=== PATIENT | female | born 1970 | race Caucasian/White ===

== ENCOUNTER 2019-01-27 00:12 | Emergency (ER) | payer OTHER, MEDICAID, SELFPAY ==
[2019-01-27 00:13] VITALS: BP 123/74; PULSE 92; RESP 18; TEMP 36.1; BMI 24.0
--- NOTE | 2019-01-27 00:43 | RAD_ITS ---
STUDY: X-RAY - LEFT KNEE REASON FOR EXAM: Female, 48 years old. Pain status post fall TECHNIQUE: 4 view(s) of the knee. COMPARISON: Right-sided knee same day FINDINGS: Normal visualized distal femur. Normal visualized proximal tibia and fibula. Normal proximal tibiofibular articulation. Normal medial femorotibial compartment. Normal lateral femorotibial compartment. Normal patellofemoral articulation. There is a widened appearance of the patellofemoral compartment on the medial side. There is visualized mild soft tissue edema. The soft tissue structures are unremarkable. RAD/Knee 4 or More Views IMPRESSION: On the sunrise view there is a mildly widened appearance of the medial aspect of the patellofemoral compartment could represent ligamentous injury of the patella retinaculum. There is no visualized joint effusion. Recommend consideration for follow-up MRI if appropriate. Electronically Signed: Edita Benson MD at 1:57 EDT Tel , Service support ,
--- NOTE | 2019-01-27 00:43 | RAD_ITS ---
STUDY: X-RAY - LEFT FOOT CLINICAL: Female, 48 years old. Pain from fall TECHNIQUE: Pain view(s) of the foot. COMPARISON: None. FINDINGS: There is a plantar spur. Normal visualized subtalar, talonavicular, calcaneocuboid, tarsal and tarsometatarsal articulations. There is an age indeterminate angulated appearance of the distal fourth and third metatarsals. There is a irregular cortical appearance of the fourth metacarpal consistent with age indeterminant fracture. The bones overall are osteopenic. Normal metatarsophalangeal joint of the great toe. Normal tibial and fibular sesamoid bones. Normal interphalangeal joint of the great toe. Normal phalanges of the great toe. Normal second through fifth metatarsophalangeal joints. Normal interphalangeal joints and phalanges of the lesser toes. The soft tissue structures are unremarkable. RAD/Foot min 3 Views IMPRESSION: Age-indeterminate fractures of the third and fourth metatarsals. Recommend palpation for point tenderness. Plantar spur. The bones are osteopenic Electronically Signed: Edita Benson MD at 2:17 EDT Tel , Service support ,
--- NOTE | 2019-01-27 00:43 | RAD_ITS ---
STUDY: X-RAY - RIGHT KNEE REASON FOR EXAM: Female, 48 years old. Pain, fall TECHNIQUE: view(s) of the knee. COMPARISON: None. FINDINGS: There is demineralization of the visualized distal femur. There is demineralization of the tibia and fibula. There is arthrosis of the proximal tibiofibular articulation. There is mild degenerative arthrosis of the medial femorotibial compartment. Normal lateral femorotibial compartment. There is mild degenerative arthrosis of the patellofemoral articulation. The soft tissue structures are unremarkable. RAD/Knee 4 or More Views IMPRESSION: Mild degenerative change. No visualized acute fracture. Electronically Signed: Edita Benson MD at 2:23 EDT Tel , Service support ,
--- NOTE | 2019-01-27 00:43 | RAD_ITS ---
STUDY: X-RAY - RIGHT ANKLE REASON FOR EXAM: Female, 48 years old. Pain fall TECHNIQUE: view(s) of the ankle. COMPARISON: 3 FINDINGS: Normal visualized distal tibia and fibula. Normal medial and lateral malleoli. Normal tibiotalar articulation and ankle mortise. There is a plantar spur. The visualized subtalar, talonavicular, calcaneocuboid and tarsal articulations are normal. The soft tissue structures are unremarkable. RAD/Ankle min 3 Views IMPRESSION: No visualized acute fracture. Electronically Signed: Edita Benson MD at 2:17 EDT Tel , Service support ,
--- NOTE | 2019-01-27 01:03 | ED.RN ---
PT REPORTS THAT SHE DOES NOT WANT TO FILE WORKERS COMP.
--- NOTE | 2019-01-27 02:28 | ED.VISSUMM ---
- ER Visit Summary Date of Service: 01/27/19 Chief Complaint: Fall History of Present Illness: The patient is a 48 F who presents after a fall. While walking she inverted her right ankle and fell forward onto both of her knees. She also fell with her left foot in a plantarflexed position. She has a recent left foot fracture from in September and had to have surgical intervention. She had the pins removed 1 month ago. She has had ongoing pain since that time. She notes that she was being treated with Percocet but recently ran out. She complains of some mild pain in bilateral knees. No other injuries. No head injury. Physical Examination: Afebrile vitals normal Heart regular rate and rhythm Lungs are clear Abdomen soft Active full range of motion x4 extremities she has mild tenderness of the bilateral knees no deformity no effusion Patient has no focal right ankle tenderness no focal bony tenderness no deformity Patient does have tenderness over the left midfoot no deformity she has easily palpable symmetric dorsalis pedis pulses with brisk capillary refill and normal sensation to light touch Test Results: Left knee x-ray shows a possible patellar retinaculum injury. There is no fracture. There is no effusion. Right knee x-ray shows mild degenerative changes. Left foot shows age-indeterminate fractures of the third and fourth metatarsals. Right ankle x-ray shows no acute fracture. Emergency Department Course and Treatment: Imaging as above. Patient has known recent left foot fractures. On review of imaging I do not appreciate any acute fracture. She was advised of the possible patellar retinaculum injury on the left. She was given an Ric wrap. She was advised to follow-up with orthopedics. She was given a home pack of oxycodone for pain and advised on supportive care and was discharged home. Treatment Plan: [] Disposition: Discharge Impression: Right ankle sprain Recent left foot fractures Bilateral knee contusions This note was generated with [employer] dictation software. It may contain incorrect words, spelling, and punctuation that were not noted in review of the chart prior to signing ED Disposition - Plan for ED Patient: Referrals: Sidney Herring DO [Primary Care Provider] -
--- NOTE | 2019-01-27 02:31 | ED.DEP ---
ED Disposition - Plan for ED Patient: Instructions: ED Contusion Lower Ext, ED Sprain Ankle W X Ray Referrals: Sidney Herring DO [Primary Care Provider] -
[2019-01-27] MEDS: oxyCODONE 5 MG Tablet PO (02:37)
== END 2019-01-27 02:50 | disposition home or self-care (01) ==
LOC: ED 00:52
PROVIDERS: Emergency Provider Emergency Medicine; Family Provider Family Medicine; PCP Family Medicine
DX: S93.401A Sprain of unspecified ligament of right ankle, initial encounter (principal); S80.01XA Contusion of right knee, initial encounter; S80.02XA Contusion of left knee, initial encounter; X50.1XXA Overexertion from prolonged static or awkward postures, initial encounter; Y93.01 Activity, walking, marching and hiking; Y92.9 Unspecified place or not applicable; S92.332A Displaced fracture of third metatarsal bone, left foot, initial encounter for closed fracture; S92.342A Displaced fracture of fourth metatarsal bone, left foot, initial encounter for closed fracture; W19.XXXA Unspecified fall, initial encounter; Z72.0 Tobacco use
CPT/HCPCS: 73564; 73610; 73630; 99282

== ENCOUNTER 2022-02-09 16:54 | Emergency (ER) | payer MEDICAID, SELFPAY ==
[2022-02-09 16:54] VITALS: PULSE 100
[2022-02-09 16:56] VITALS: BP 128/60; PULSE 103; RESP 18; TEMP 37.1; O2SAT 99; BMI 23.0
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
== END 2022-02-09 17:35 | disposition home or self-care (01) ==
PROVIDERS: PCP Family Medicine; Visit Provider Physician Assistant
DX: F41.9 Anxiety disorder, unspecified (principal); F17.210 Nicotine dependence, cigarettes, uncomplicated; Z79.899 Other long term (current) drug therapy
CPT/HCPCS: 99282

== ENCOUNTER 2022-04-22 19:51 | Emergency (ER) | payer MEDICAID, SELFPAY ==
[2022-04-22 19:53] VITALS: BP 124/67; PULSE 103; RESP 18; TEMP 36.2; O2SAT 99; BMI 21.1
--- NOTE | 2022-04-22 20:53 | ED.VIS.BACK ---
HPI History of Present Illness Chief Complaint: Back Informant: patient Narrative Narrative: Patient states she aggravated her back today. She was doing a lot of getting up and down. She has increased pain in the left lower back. She states this is a side that always acts up. She twisted getting into her car and that made it worse. It does not radiate down the legs although it hurts more when she moves her left leg. She has no numbness tingling. She is not weak but she states any motion bothers her back. No bowel or bladder dysfunction. No incontinence at all. No fevers chills sweats. She has been feeling normal until she did just more activity today. No fall or impact. She states she does not see any back specialist. But she is on long-term benzos, gabapentin and oxycodone. Her last prescription for 90 oxycodone was filled on the second of this month. She has allergy to NSAIDs. This is because she had gastric bypass and she is not supposed to take them. There is no actual reaction. PFSH PFSH Home Medications promethazine 25 mg tablet 25 mg PO Q8H PRN PRN Nausea 01/27/19 [History Last Taken Unknown] bupropion HCl 150 mg 24 hr tablet, extended release 150 mg PO DAILY 02/09/22 [History Last Taken Unknown] hydroxyzine HCl 50 mg tablet 50 mg PO TID PRN anxiety #15 tabs 02/09/22 [Rx Last Taken Unknown] gabapentin 600 mg tablet 1 tab PO QHS 04/22/22 [History Last Taken Unknown] lorazepam 1 mg tablet 0.5 mg PO DAILY 04/22/22 [History Last Taken Unknown] oxycodone-acetaminophen 7.5 mg-325 mg tablet 1 tab PO TID 04/22/22 [History Last Taken Unknown] tizanidine 4 mg tablet 1 tab PO TID 04/22/22 [History Last Taken Unknown] Allergy/AdvReac Type Severity Reaction Status Date / Time bupivacaine [From Marcaine] Allergy Angioedema Verified 04/22/22 19:52 cortisone Allergy Angioedema Verified 04/22/22 19:52 lidocaine Allergy Angioedema Verified 04/22/22 19:52 NSAIDS (Non-Steroidal AdvReac Upset Verified 04/22/22 19:52 Anti-Inflamma Stomach Social History Smoking Status: Current every day smoker tobacco type: cigarettes ROS ROS ED Constitutional Constitutional ED: Denies chills or fever(s) Eyes Eyes: Denies change in vision ENT ENT ED: Denies rhinorrhea or sore throat Cardiovascular Cardiovascular: Denies chest pain or palpitations Respiratory/Chest Respiratory/Chest: Denies dyspnea Gastrointestinal Gastrointestinal: Denies abdominal pain, constipation, diarrhea, nausea or vomiting Genitourinary Genitourinary ED: Denies dysuria, hematuria or urinary frequency Musculoskeletal Musculoskeletal: Reports back pain Integumentary Denies abscess, Abrasions or rash Neurologic Neurologic: Denies paresthesias or weakness Endocrine Endocrinology: Denies polydipsia or polyuria Hematologic/Lymphatic Hematologic/Lymphatic: Denies easy bleeding or easy bruising Allergic/Immunologic Allergic/Immunologic ED: Denies urticaria EXAM Physical Exam Const Vital Signs: 04/22/22 19:53 Temperature 97.2 F L Temperature Source Temporal Pulse Rate 103 H Respiratory Rate 18 Blood Pressure 124/67 H Blood Pressure Mean 86 Pulse Ox 99 Oxygen Delivery Method Room Air Positive well nourished and well developed General Appearance ED: well developed and NAD HEENT Reports moist mucous membranes Eyes EOMs intact bilaterally Resp normal respiratory effort Cardio regular rate and regular rhythm GI normal to inspection, nondistended, normoactive bowel sounds, soft to palpation, non-tender, non-distended and no masses GI Narrative: Bowel sounds are normal. No mass or distention. No pain with palpation Back/Spine normal to inspection Back/Spine Narrative: Back looks normal. She has minimal right paraspinal tenderness. She has mostly left paraspinal tenderness down low. No real buttock or sciatic notch tenderness. Reflexes and strength are intact. But any motion causes discomfort up in her back. Extremity normal to inspection Extremity Narrative: No edema or cords. Neuro Deep Tendon Reflexes: Rt Patellar (L4): 2+, Lt Patellar (L4): 2+, Rt Ankle (S1): 1+ and Lt Ankle (S1): 1+ Deep Tendon Reflexes Back: Rt Patellar (L4): 2+, Lt Patellar (L4): 2+, Rt Ankle (S1): 1+ and Lt Ankle (S1): 1+ Psych mental status grossly normal Skin no rashes or lesions noted and no wounds MDM MDM MDM Narrative Medical decision making narrative: Patient will get dose meds here. She has tizanidine oxycodone and lorazepam at home. She also has gabapentin. I cannot prescribe further meds. She will follow-up with her physician. If she develops weakness, bowel bladder dysfunction fevers or other problems she should return. Discharge Plan Triage Chief Complaint: Back ED Provider: Christian Handy Dx/Rx/DC Orders Clinical Impression: Acute exacerbation of chronic low back pain Instructions: ED Back Pain (Acute or Chronic) Prescriptions: No Action promethazine 25 MG tablet 25 mg PO Q8H PRN PRN (Reason: Nausea) hydroxyzine HCl 50 mg tablet 50 mg PO TID PRN (Reason: anxiety) Qty: 15 0RF bupropion HCl 150 mg tablet extended release 24 hr 150 mg PO DAILY Label Comments: take 1 tablet by mouth once daily gabapentin 600 mg tablet 1 tab PO QHS Label Comments: take 1 tablet by mouth at bedtime tizanidine 4 mg tablet 1 tab PO TID Label Comments: take 1 tablet by mouth every 8 hours lorazepam 1 mg tablet 0.5 mg PO DAILY Label Comments: take 1 tablet by mouth three times a day if needed for anxiety oxycodone-acetaminophen 7.5-325 mg tablet 1 tab PO TID Label Comments: take 1 tablet by mouth every 8 hours if needed for pain Primary Care Provider: Sidney Herring Referrals: Sidney Herring, [Primary Care Provider] - 3-5 Days if not improving Disposition Disposition: Home, Self Care
[2022-04-22] MEDS: Orphenadrine 60 MG/2 ML Ampul IM (21:04)
[2022-04-22] MEDS: Ketorolac 15 MG/ML Vial IM (21:04)
[2022-04-22] MEDS: oxyCODONE 5 MG Tablet PO (21:04)
== END 2022-04-22 21:28 | disposition home or self-care (01) ==
LOC: ED 21:13
PROVIDERS: Emergency Provider Emergency Medicine; PCP Family Medicine; Visit Provider Emergency Medicine
DX: M54.50 Low back pain, unspecified (principal); G89.29 Other chronic pain; F17.210 Nicotine dependence, cigarettes, uncomplicated; Z79.899 Other long term (current) drug therapy
CPT/HCPCS: 96372; 99283

== ENCOUNTER 2022-04-26 18:05 | Emergency (ER) | payer MEDICAID, SELFPAY ==
[2022-04-26 18:06] VITALS: BP 123/72; PULSE 99; RESP 18; TEMP 37.6; O2SAT 97; BMI 20.7
[2022-04-26 18:25] LABS: Bacteria 0 SEEN /hpf (None Seen); Mucous, Urine 0 SEEN /hpf (<or=2+); Red Blood Cells-Urine 0 SEEN /hpf (0-5)
[2022-04-26 18:28] LABS: Color, Urine Yellow (Yellow); Glucose, Dipstick Normal (Normal); Ketone-Dipstick Negative (Negative); Leukocyte Esterase-Dipstick 25 /ul (Negative); Nitrite-Dipstick Negative (Negative); Occult Blood-Urine Negative /ul (Negative); Protein-Dipstick Negative (Negative); Specific Gravity, Urine 1.005 (1.002-1.030); Urine Bilirubin Dipstick Negative (Negative); Urine Clarity Clear (Clear); Urine Urobilinogen Normal (Normal)
[2022-04-26 18:43] LABS: Squamous Epithelial Cells - UA 0-5 SEEN /hpf (5-10); White Blood Cells 0-5 SEEN /hpf (0-5)
[2022-04-26 20:26] VITALS: BP 140/74; PULSE 84; PULSE 86; RESP 18; TEMP 37.1; O2SAT 100
--- NOTE | 2022-04-26 20:35 | EDS_ITS ---
HPI History of Present Illness Chief Complaint: Flank Pain Informant: patient Onset/Context/Timing Onset: Days (4 days) Context: Gradual Onset Timing: Waxes and wanes Current Severity: Moderate Maximum Severity: Moderate Narrative Narrative: Patient presents secondary to left flank pain. She has a history of chronic back pain and was seen here last Friday for reproducible pain in her lower back. She was given pain meds here and then discharged to continue her chronic pain meds at home. She states that she has some dysuria and increased frequency in urination. She now has pain wrapping around her left flank and into her left groin. She denies history of kidney stones. No fever or chills. No change in bowel habits. [facility] Medical History Chronic back pain History of depression Home Medications promethazine 25 mg tablet 25 mg PO Q8H PRN PRN Nausea 01/27/19 [History Last Taken Unknown] bupropion HCl 150 mg 24 hr tablet, extended release 150 mg PO DAILY 02/09/22 [History Last Taken Unknown] hydroxyzine HCl 50 mg tablet 50 mg PO TID PRN anxiety #15 tabs 02/09/22 [Rx Last Taken Unknown] gabapentin 600 mg tablet 1 tab PO QHS 04/22/22 [History Last Taken Unknown] lorazepam 1 mg tablet 0.5 mg PO DAILY 04/22/22 [History Last Taken Unknown] oxycodone-acetaminophen 7.5 mg-325 mg tablet 1 tab PO TID 04/22/22 [History Last Taken Unknown] tizanidine 4 mg tablet 1 tab PO TID 04/22/22 [History Last Taken Unknown] Allergy/AdvReac Type Severity Reaction Status Date / Time bupivacaine [From Marcaine] Allergy Angioedema Verified 04/26/22 18:05 cortisone Allergy Angioedema Verified 04/26/22 18:05 lidocaine Allergy Angioedema Verified 04/26/22 18:05 NSAIDS (Non-Steroidal AdvReac Upset Verified 04/26/22 18:05 Anti-Inflamma Stomach Social History Smoking Status: Current every day smoker tobacco type: cigarettes ROS ROS ED Constitutional Constitutional ED: Denies chills or fever(s) Eyes Eyes: Denies change in vision or discharge from eye(s) ENT ENT ED: Denies discharge from eye(s), rhinorrhea or sore throat Cardiovascular Cardiovascular: Denies chest pain or palpitations Respiratory/Chest Respiratory/Chest: Denies cough or dyspnea Gastrointestinal Gastrointestinal: Reports abdominal pain; Denies diarrhea, nausea or vomiting Genitourinary Genitourinary ED: Reports dysuria and urinary frequency; Denies difficulty urinating Musculoskeletal Musculoskeletal: Reports back pain; Denies extremity pain Integumentary Denies Abrasions or rash Neurologic Neurologic: Denies headache(s) or weakness Allergic/Immunologic Allergic/Immunologic ED: Denies lip swelling or urticaria EXAM Physical Exam Const Vital Signs: 04/26/22 18:06 04/26/22 20:26 04/26/22 20:26 Temperature 99.7 F H 98.7 F Temperature Source Temporal Oral Pulse Rate 99 84 86 Respiratory Rate 18 18 18 Blood Pressure 123/72 H 140/74 H 140/74 H Blood Pressure Mean 89 96 96 Pulse Ox 97 100 100 Oxygen Delivery Method Room Air Room Air Room Air Positive well nourished and well developed General Appearance ED: well developed HEENT Reports normocephalic and head/scalp atraumatic Eyes PERRL and EOMs intact bilaterally Neck supple Chest Wall inspection of chest normal and palpation of chest normal Resp normal respiratory effort and clear to auscultation bilaterally Cardio regular rate and regular rhythm GI normal to inspection, nondistended, normoactive bowel sounds and non-tender Palpation: soft Back/Spine Back/Spine Narrative: Reproducible tenderness in the left low lumbar paraspinal muscles. Extremity normal to inspection Neuro oriented x3 and no sensory deficits noted Sensorium / Orientation: alert Motor Exam: strength 5/5 throughout Psych mental status grossly normal Skin no rashes or lesions noted MDM MDM MDM Narrative Medical decision making narrative: Patient was given Toradol, Norflex, oxycodone which helped her pain previously. Urinalysis was obtained by nursing protocol and unremarkable. Plan was to order CT flank but patient eloped from the emergency room prior to this being ordered and performed. Lab Data Labs: Laboratory Results - last 24 hr 04/26/22 18:20 Urine Color Yellow Urine Clarity Clear Urine pH 7.0 Ur Specific [place] 1.005 Urine Protein Negative Urine Glucose (UA) Normal Urine Ketones Negative Urine Occult Blood Negative Urine Nitrite Negative Urine Bilirubin Negative Urine Urobilinogen Normal Ur Leukocyte Esterase 25 H Urine RBC 0 SEEN Urine WBC 0-5 SEEN Ur Squamous Epith Cells 0-5 SEEN Urine Bacteria 0 SEEN Urine Mucus 0 SEEN Discharge Plan Triage Chief Complaint: Flank Pain ED Provider: Alexandria Harris Dx/Rx/DC Orders Clinical Impression: Left flank pain Prescriptions: No Action promethazine 25 MG tablet 25 mg PO Q8H PRN PRN (Reason: Nausea) hydroxyzine HCl 50 mg tablet 50 mg PO TID PRN (Reason: anxiety) Qty: 15 0RF bupropion HCl 150 mg tablet extended release 24 hr 150 mg PO DAILY Label Comments: take 1 tablet by mouth once daily gabapentin 600 mg tablet 1 tab PO QHS Label Comments: take 1 tablet by mouth at bedtime tizanidine 4 mg tablet 1 tab PO TID Label Comments: take 1 tablet by mouth every 8 hours lorazepam 1 mg tablet 0.5 mg PO DAILY Label Comments: take 1 tablet by mouth three times a day if needed for anxiety oxycodone-acetaminophen 7.5-325 mg tablet 1 tab PO TID Label Comments: take 1 tablet by mouth every 8 hours if needed for pain Primary Care Provider: Sidney Herring Referrals: Sidney Herring DO [Primary Care Provider] - Disposition Disposition: Elopement Discharge Date/Time: 04/26/22 23:35
[2022-04-26] MEDS: oxyCODONE 5 MG Tablet PO (20:50)
[2022-04-26] MEDS: Ketorolac 15 MG/ML Vial IM (20:51)
[2022-04-26] MEDS: Orphenadrine 60 MG/2 ML Ampul IM (20:51)
== END 2022-04-26 23:35 | disposition left against medical advice (07) ==
PROVIDERS: Emergency Provider Emergency Medicine; PCP Family Medicine; Visit Provider Emergency Medicine
DX: R10.9 Unspecified abdominal pain (principal); M54.9 Dorsalgia, unspecified; G89.29 Other chronic pain; F17.210 Nicotine dependence, cigarettes, uncomplicated; F32.A Depression, unspecified; Z79.899 Other long term (current) drug therapy
CPT/HCPCS: 81001; 96372; 99283; A4216

== ENCOUNTER 2022-04-29 12:03 | Emergency (ER) | payer MEDICAID, SELFPAY ==
[2022-04-29 12:04] VITALS: BP 134/59; PULSE 110; RESP 18; TEMP 37.3; O2SAT 99; BMI 23.3
--- NOTE | 2022-04-29 12:51 | EDS_ITS ---
HPI History of Present Illness Chief Complaint: Abscess Informant: patient Narrative Narrative: 52-year-old female presenting to the emergency department out of concern for perineal abscess. Patient states symptoms began yesterday unexpectedly with pain. She notes some swelling and continued pain today. She notes she is never had a thing like this before. [facility] Medical History Chronic back pain History of depression Home Medications promethazine 25 mg tablet 25 mg PO Q8H PRN PRN Nausea 01/27/19 [History Last Taken Unknown] bupropion HCl 150 mg 24 hr tablet, extended release 150 mg PO DAILY 02/09/22 [History Last Taken Unknown] hydroxyzine HCl 50 mg tablet 50 mg PO TID PRN anxiety #15 tabs 02/09/22 [Rx Last Taken Unknown] gabapentin 600 mg tablet 1 tab PO QHS 04/22/22 [History Last Taken Unknown] lorazepam 1 mg tablet 0.5 mg PO DAILY 04/22/22 [History Last Taken Unknown] oxycodone-acetaminophen 7.5 mg-325 mg tablet 1 tab PO TID 04/22/22 [History Last Taken Unknown] tizanidine 4 mg tablet 1 tab PO TID 04/22/22 [History Last Taken Unknown] cephalexin 500 mg capsule 500 mg PO Q6 #40 CAPSULES 04/29/22 [Rx Last Taken Unknown] sulfamethoxazole 800 mg-trimethoprim 160 mg tablet 1 tab PO BID #20 TABLETS 04/29/22 [Rx Last Taken Unknown] tramadol 50 mg tablet 50 mg PO Q4H PRN PRN Pain 3 days #20 tabs 04/29/22 [Rx Last Taken Unknown] Allergy/AdvReac Type Severity Reaction Status Date / Time bupivacaine [From Marcaine] Allergy Angioedema Verified 04/29/22 12:06 cortisone Allergy Angioedema Verified 04/29/22 12:06 lidocaine Allergy Angioedema Verified 04/29/22 12:06 NSAIDS (Non-Steroidal AdvReac Upset Verified 04/29/22 12:06 Anti-Inflamma Stomach Social History (Updated 04/29/22 @ 12:[address] Braden Razo DO) Smoking Status: Current every day smoker tobacco type: cigarettes substance use type: does not use ROS ROS ED Constitutional Constitutional ED: Denies chills or weight loss Eyes Eyes: Denies change in vision or diplopia ENT ENT ED: Denies ear pain, rhinorrhea or sore throat Cardiovascular Cardiovascular: Denies chest pain, orthopnea, palpitations or racing heartbeat Respiratory/Chest Respiratory/Chest: Denies cough, dyspnea or orthopnea Gastrointestinal Gastrointestinal: Denies abdominal pain, diarrhea, nausea or vomiting Genitourinary Genitourinary ED: Denies dysuria, hematuria or urinary frequency Musculoskeletal Musculoskeletal: Denies arthralgias or myalgias Integumentary Reports abscess; Denies rash Neurologic Neurologic: Denies headache(s) or weakness Psychiatric Psychiatric: Denies anxiety, depression, suicidal ideation or suicidal thoughts Endocrine Endocrinology: Denies polydipsia, polyphagia or polyuria Allergic/Immunologic Allergic/Immunologic ED: Denies mouth swelling, tongue swelling or urticaria EXAM Physical Exam Const Vital Signs: 04/29/22 12:04 Temperature 99.1 F Temperature Source Temporal Pulse Rate 110 H Respiratory Rate 18 Blood Pressure 134/59 H Blood Pressure Mean 84 Pulse Ox 99 Oxygen Delivery Method Room Air Positive well nourished and well developed General Appearance ED: well developed HEENT Reports normocephalic, head/scalp atraumatic and moist mucous membranes Eyes PERRL and EOMs intact bilaterally Neck no lymphadenopathy, supple and no JVD Resp normal respiratory effort and clear to auscultation bilaterally Cardio regular rate, regular rhythm and no murmurs GI normal to inspection, nondistended, normoactive bowel sounds and non-tender Palpation: soft Narrative: There is a area of induration and erythema consistent with an early abscess on the right perineum. It is inferior lateral to the labia. Back/Spine no CVA tenderness and normal ROM Extremity normal to inspection General Extremety ED: Negative for edema General Extremity: Negative for edema Neuro oriented x3 and CN's II-XII intact bilaterally Sensorium / Orientation: alert Motor Exam: strength 5/5 throughout Psych mental status grossly normal Mood & Affect: Negative for depressed or tearful Skin no rashes or lesions noted and no wounds MDM MDM MDM Narrative Medical decision making narrative: I do not palpate any fluctuance. Bedside ultrasound does not demonstrate any drainable loculated fluid collections. At this point patient was advised that this may progress to needing drained but the current time I am not seeing anything that I can obviously drain with success. Patient will be started on antibiotics and pain medication. She already has Percocet at home I will add in some tramadol. Patient to return if worsening or concerns Discharge Plan Triage Chief Complaint: Abscess Other Complaint: Other, Pain/Inj ED Provider: Braden Razo Dx/Rx/DC Orders Clinical Impression: Abscess of perineum Instructions: ED Abscess Antibiotic Treatment Only Prescriptions: New sulfamethoxazole-trimethoprim [sulfamethoxazole-trimethoprim] 800-160 mg tablet 1 tab PO BID Qty: 20 0RF tramadol 50 mg tablet 50 mg PO Q4H PRN PRN (Reason: Pain) 3 Days Qty: 20 0RF cephalexin [cephalexin] 500 mg capsule 500 mg PO Q6 Qty: 40 0RF No Action promethazine 25 MG tablet 25 mg PO Q8H PRN PRN (Reason: Nausea) hydroxyzine HCl 50 mg tablet 50 mg PO TID PRN (Reason: anxiety) Qty: 15 0RF bupropion HCl 150 mg tablet extended release 24 hr 150 mg PO DAILY Label Comments: take 1 tablet by mouth once daily gabapentin 600 mg tablet 1 tab PO QHS Label Comments: take 1 tablet by mouth at bedtime tizanidine 4 mg tablet 1 tab PO TID Label Comments: take 1 tablet by mouth every 8 hours lorazepam 1 mg tablet 0.5 mg PO DAILY Label Comments: take 1 tablet by mouth three times a day if needed for anxiety oxycodone-acetaminophen 7.5-325 mg tablet 1 tab PO TID Label Comments: take 1 tablet by mouth every 8 hours if needed for pain Primary Care Provider: Sidney Herring Referrals: Sidney Herring, [Primary Care Provider] - As Needed Disposition Disposition: Home, Self Care
[2022-04-29 12:56] VITALS: BP 134/59; PULSE 110; RESP 18; TEMP 37.3; O2SAT 99
== END 2022-04-29 13:01 | disposition home or self-care (01) ==
PROVIDERS: Emergency Provider Emergency Medicine; PCP Family Medicine; Visit Provider Emergency Medicine
DX: L02.215 Cutaneous abscess of perineum (principal); F17.210 Nicotine dependence, cigarettes, uncomplicated
CPT/HCPCS: 99283

== ENCOUNTER 2022-05-07 23:35 | Emergency (ER) | payer MEDICAID, SELFPAY ==
[2022-05-07 23:37] VITALS: BP 136/71; PULSE 121; RESP 16; TEMP 36.9; O2SAT 99; BMI 23.0
--- NOTE | 2022-05-07 23:54 | EX.ED.DYSGE1 ---
HPI History of Present Illness Chief Complaint: Other, Pain/Inj Narrative Narrative: 2-year-old female with chronic pain presenting because she states she is fed up with her chronic pain. She states she has pain all over for multiple surgeries. Her pain is managed by her primary care who has her on oxycodone, muscle relaxers, tramadol. Patient states that she has spoken to her primary care physician before and wants to be on Suboxone but states that her primary care physician does not do this. She has a friend who goes to [facility] and is on Suboxone and is happy with the choices that they have made. She says she has thought about [facility]. She states she cannot do inpatient detox from opioids because she has to work. She denies any new or changing symptoms. [facility] Medical History Chronic back pain History of depression Home Medications promethazine 25 mg tablet 25 mg PO Q8H PRN PRN Nausea 01/27/19 [History Last Taken Unknown] bupropion HCl 150 mg 24 hr tablet, extended release 150 mg PO DAILY 02/09/22 [History Last Taken Unknown] hydroxyzine HCl 50 mg tablet 50 mg PO TID PRN anxiety #15 tabs 02/09/22 [Rx Last Taken Unknown] gabapentin 600 mg tablet 1 tab PO QHS 04/22/22 [History Last Taken Unknown] lorazepam 1 mg tablet 0.5 mg PO DAILY 04/22/22 [History Last Taken Unknown] oxycodone-acetaminophen 7.5 mg-325 mg tablet 1 tab PO TID 04/22/22 [History Last Taken Unknown] tizanidine 4 mg tablet 1 tab PO TID 04/22/22 [History Last Taken Unknown] cephalexin 500 mg capsule 500 mg PO Q6 #40 CAPSULES 04/29/22 [Rx Last Taken Unknown] sulfamethoxazole 800 mg-trimethoprim 160 mg tablet 1 tab PO BID #20 TABLETS 04/29/22 [Rx Last Taken Unknown] tramadol 50 mg tablet 50 mg PO Q4H PRN PRN Pain 3 days #20 tabs 04/29/22 [Rx Last Taken Unknown] trazodone 100 mg tablet 100 mg PO QHS #1 TAB 05/07/22 [Rx Last Taken Unknown] Allergy/AdvReac Type Severity Reaction Status Date / Time bupivacaine [From Marcaine] Allergy Angioedema Verified 05/07/22 23:42 cortisone Allergy Angioedema Verified 05/07/22 23:42 lidocaine Allergy Angioedema Verified 05/07/22 23:42 NSAIDS (Non-Steroidal AdvReac Upset Verified 05/07/22 23:42 Anti-Inflamma Stomach Social History Smoking Status: Current every day smoker tobacco type: cigarettes substance use type: does not use ROS ROS ED Constitutional Constitutional ED: Denies chills, fever(s) or sweats Eyes Eyes: Denies blurry vision or change in vision ENT ENT ED: Denies ear pain or sore throat Cardiovascular Cardiovascular: Denies chest pain, palpitations or racing heartbeat Respiratory/Chest Respiratory/Chest: Denies cough, dyspnea or sputum Gastrointestinal Gastrointestinal: Denies abdominal pain, constipation, diarrhea, nausea or vomiting Genitourinary Genitourinary ED: Denies dysuria, hematuria or urinary frequency Musculoskeletal Musculoskeletal: Reports other Details: Pain all over Integumentary Denies abscess, Abrasions or rash Neurologic Neurologic: Denies headache(s), paresthesias or weakness Psychiatric Psychiatric: Denies anxiety, depression, suicidal ideation or suicidal thoughts Endocrine Endocrinology: Denies polydipsia or polyuria EXAM Physical Exam Const Vital Signs: 05/07/22 23:37 Temperature 98.5 F Temperature Source Temporal Pulse Rate 121 H Respiratory Rate 16 Blood Pressure 136/71 H Blood Pressure Mean 92 Pulse Ox 99 Oxygen Delivery Method Room Air Positive well nourished General Appearance ED: NAD; Negative for pallor HEENT Reports moist mucous membranes and dry mucous membranes Mouth ED: Yes dry mucous membranes Mouth: dry mucous membranes Eyes PERRL and EOMs intact bilaterally Resp normal respiratory effort Cardio regular rhythm Rate: tachycardic Neuro oriented x3 and CN's II-XII intact bilaterally Psych mental status grossly normal Skin no rashes or lesions noted General Skin Exam: Negative for jaundice or pallor MDM MDM MDM Narrative Medical decision making narrative: After discussion with the patient she understands that we do not place people on Suboxone from the emergency room. She does not want to be inpatient. She already knows of [facility] as a resource and states she can try to reach out to them. She request something to help her sleep tonight so that she can work tomorrow. I gave her 1 trazodone to take home with her. Patient will follow up with her PCP in [facility]. Impression: 1. Chronic pain Lab Data Attestation: I reviewed the patient's lab results. Discharge Plan Triage Chief Complaint: Other, Pain/Inj ED Provider: Travis Garcia Dx/Rx/DC Orders Instructions: ED Chronic Pain Prescriptions: New trazodone 100 mg tablet 100 mg PO QHS Qty: 1 0RF No Action promethazine 25 MG tablet 25 mg PO Q8H PRN PRN (Reason: Nausea) hydroxyzine HCl 50 mg tablet 50 mg PO TID PRN (Reason: anxiety) Qty: 15 0RF bupropion HCl 150 mg tablet extended release 24 hr 150 mg PO DAILY Label Comments: take 1 tablet by mouth once daily gabapentin 600 mg tablet 1 tab PO QHS Label Comments: take 1 tablet by mouth at bedtime tizanidine 4 mg tablet 1 tab PO TID Label Comments: take 1 tablet by mouth every 8 hours lorazepam 1 mg tablet 0.5 mg PO DAILY Label Comments: take 1 tablet by mouth three times a day if needed for anxiety oxycodone-acetaminophen 7.5-325 mg tablet 1 tab PO TID Label Comments: take 1 tablet by mouth every 8 hours if needed for pain sulfamethoxazole-trimethoprim [sulfamethoxazole-trimethoprim] 800-160 mg tablet 1 tab PO BID Qty: 20 0RF tramadol 50 mg tablet 50 mg PO Q4H PRN PRN (Reason: Pain) 3 Days Qty: 20 0RF cephalexin [cephalexin] 500 mg capsule 500 mg PO Q6 Qty: 40 0RF Primary Care Provider: Sidney Herring Referrals: Sidney Herring DO [Primary Care Provider] - Disposition Disposition: Home, Self Care
[2022-05-08] MEDS: traZODone 100 MG Tablet PO (02:02)
== END 2022-05-08 02:03 | disposition home or self-care (01) ==
LOC: ED 23:59
PROVIDERS: Emergency Provider Student in an Organized Health Care Education/Training Program; PCP Family Medicine; Visit Provider Student in an Organized Health Care Education/Training Program
DX: G89.29 Other chronic pain (principal); F17.210 Nicotine dependence, cigarettes, uncomplicated; F32.A Depression, unspecified
CPT/HCPCS: 99283

== ENCOUNTER 2022-07-03 22:29 | Emergency (ER) | payer MEDICAID, SELFPAY ==
[2022-07-03 22:30] VITALS: BP 129/59; PULSE 42; RESP 15; TEMP 36.6; O2SAT 100; BMI 26.9
--- NOTE | 2022-07-03 22:38 | EKG12_ITS ---
Test Reason : DYSRHYTHMIA Blood Pressure : / mmHG Vent. Rate : 098 BPM Atrial Rate : 098 BPM P-R Int : 138 ms QRS Dur : 072 ms QT Int : 360 ms P-R-T Axes : 066 017 032 degrees QTc Int : 459 ms Normal sinus rhythm Normal ECG Confirmed by SHAY DREW, SEVERIANO ([id number]), metropolitan editor NELIA WELLS ([id number]) on 07/08/2022 10:38:41 AM Referred By: NILAY Confirmed By:SEVERIANO DAY MD
[2022-07-03] MEDS: Atropine Sulfate 1 MG/10 ML Syringe IV (22:40)
[2022-07-03 23:02] VITALS: BP 164/82; PULSE 83; RESP 32; TEMP 36.7; O2SAT 93
[2022-07-03 23:05] LABS: Absolute Neutrophil Count 5.3 X10^3/uL (2.0-7.7); Basophil# 0.02 X10^3/uL; Basophil% 0.3 % (0-1); Eosinophil# 0.06 X10^3/uL; Eosinophils% 0.8 % (0-5); Hematocrit 23.9 % (37-47); Hemoglobin 6.1 g/dL (12.0-15.0); Lymphocyte % 20.3 % (19-41); Mean Corp Hgb Conc 25.5 g/dL (32-36); Mean Corpuscular Volume 66.8 fL (81-99); Monocyte# 0.45 X10^3/uL; Monocyte% 6.1 % (0-10); NRBC Flagged by Analyzer 0 % (0-5); Neutrophil # 5.33 X10^3/uL (2.7-7.7); Neutrophil % 72.1 % (47-70); Platelet Count 112 K/mm3 (150-450); RBC Distribution Width CV 18.3 % (11.6-14.6); RBC Distribution Width SD 43.1 fl (35.1-43.9); Red Blood Count 3.58 M/mm3 (4.2-5.4); White Blood Count 7.4 K/mm3 (4.4-11.0)
[2022-07-03 23:18] LABS: Anion Gap 5 (5-15); BUN 11 mg/dL (7-18); BUN/Creat Ratio 14.2 RATIO (10-20); Calcium,Total 7.6 mg/dL (8.5-10.1); Chloride 109 mmol/L (98-107); Creatinine, Serum 0.78 mg/dL (0.55-1.02); EST Glomerular Filtration Rate 83 mL/min (>60); Est Glom Filt Rate - Afr Amer 101 mL/min (>60); Estimated Creatinine Clearance 64.39 ml/min; Glucose 209 mg/dL (74-106); Magnesium 1.8 mg/dL (1.6-2.6); Potassium 4.6 mmol/L (3.5-5.1); Sodium Level 137 mmol/L (136-145)
[2022-07-03] MEDS: Acetaminophen 500 MG Tablet 1000 MG PO (23:22)
[2022-07-03 23:30] LABS: Acetaminophen (Tylenol) Level < 2.0 ug/mL (10.0-30.0); Salicylate 3.2 mg/dL (2.8-20.0)
[2022-07-03 23:43] LABS: Bacteria 0 SEEN /hpf (None Seen); Mucous, Urine 0 SEEN /hpf (<or=2+); Red Blood Cells-Urine 0 SEEN /hpf (0-5); Squamous Epithelial Cells - UA 0 SEEN /hpf (5-10); White Blood Cells 0 SEEN /hpf (0-5)
[2022-07-03 23:44] LABS: Color, Urine Yellow (Yellow); Glucose, Dipstick Normal (Normal); Ketone-Dipstick Negative (Negative); Leukocyte Esterase-Dipstick Negative /ul (Negative); Nitrite-Dipstick Negative (Negative); Occult Blood-Urine Negative /ul (Negative); Protein-Dipstick Negative (Negative); Urine Bilirubin Dipstick Negative (Negative); Urine Clarity Clear (Clear); Urine Urobilinogen Normal (Normal)
[2022-07-04] VITALS: PULSE 70; RESP 16; O2SAT 97
[2022-07-04 00:03] LABS: Amphetamine Urine VISTA NEGATIVE (<1000 ng/mL); Barbiturate Urine VISTA NEGATIVE (< 200 ng/mL); Benzodiazepine Urine VISTA NEGATIVE (< 200 ng/mL); Cocaine Urine VISTA NEGATIVE (< 300 ng/mL); Ecstacy Urine VISTA NEGATIVE (< 500 ng/mL); Methadone Urine VISTA NEGATIVE (< 300 ng/mL); PCP Urine VISTA NEGATIVE (< 25 ng/mL); THC Urine VISTA NEGATIVE (< 50 ng/mL); Vista UDS pH Range 7
[2022-07-04 01:05] VITALS: PULSE 50; RESP 24
[2022-07-04 03:41] VITALS: BP 94/57; PULSE 50; RESP 18; O2SAT 97
--- NOTE | 2022-07-04 03:53 | EDS_ITS ---
HPI History of Present Illness Chief Complaint: Overdose Narrative Narrative: Patient is a 52-year-old female with past medical history of anxiety/depression and chronic back pain. EMS brought her in secondary to an overdose. EMS states that they were called by the patient's neighbor when she showed up there and seemed altered and at that time stated she had overdosed on her medication. The patient states that she took multiple pills throughout the day and she is unsure of her last dose. She states that she did this simply because she was feeling bad and did not have any intentional thoughts of harming her self. Patient denies any alcohol or drug use at this time other than the prescribed medications. [facility] Medical History Chronic back pain History of depression Home Medications promethazine 25 mg tablet 25 mg PO Q8H PRN PRN Nausea 01/27/19 [History Last Taken Unknown] bupropion HCl 150 mg 24 hr tablet, extended release 150 mg PO DAILY 02/09/22 [History Last Taken Unknown] hydroxyzine HCl 50 mg tablet 50 mg PO TID PRN anxiety #15 tabs 02/09/22 [Rx Last Taken Unknown] gabapentin 600 mg tablet 1 tab PO QHS 04/22/22 [History Last Taken Unknown] lorazepam 1 mg tablet 0.5 mg PO DAILY 04/22/22 [History Last Taken Unknown] oxycodone-acetaminophen 7.5 mg-325 mg tablet 1 tab PO TID 04/22/22 [History Last Taken Unknown] tizanidine 4 mg tablet 1 tab PO TID 04/22/22 [History Last Taken Unknown] cephalexin 500 mg capsule 500 mg PO Q6 #40 CAPSULES 04/29/22 [Rx Last Taken Unknown] sulfamethoxazole 800 mg-trimethoprim 160 mg tablet 1 tab PO BID #20 TABLETS 04/29/22 [Rx Last Taken Unknown] tramadol 50 mg tablet 50 mg PO Q4H PRN PRN Pain 3 days #20 tabs 04/29/22 [Rx Last Taken Unknown] trazodone 100 mg tablet 100 mg PO QHS #1 TAB 05/07/22 [Rx Last Taken Unknown] Allergy/AdvReac Type Severity Reaction Status Date / Time bupivacaine [From Marcaine] Allergy Angioedema Verified 07/03/22 23:07 cortisone Allergy Angioedema Verified 07/03/22 23:07 lidocaine Allergy Angioedema Verified 07/03/22 23:07 NSAIDS (Non-Steroidal AdvReac Upset Verified 07/03/22 23:07 Anti-Inflamma Stomach Social History Smoking Status: Current every day smoker tobacco type: cigarettes substance use type: does not use ROS ROS ED Constitutional Constitutional ED: Denies chills or fever(s) Eyes Eyes: Denies change in vision ENT ENT ED: Denies sore throat Cardiovascular Cardiovascular: Denies chest pain Respiratory/Chest Respiratory/Chest: Denies cough or dyspnea Gastrointestinal Gastrointestinal: Denies abdominal pain, diarrhea, nausea or vomiting Genitourinary Genitourinary ED: Denies dysuria Musculoskeletal Musculoskeletal: Denies myalgias Integumentary Denies rash Neurologic Neurologic: Denies headache(s) Psychiatric Psychiatric: Denies suicidal ideation or suicidal thoughts Hematologic/Lymphatic Hematologic/Lymphatic: Denies easy bleeding or easy bruising EXAM Physical Exam Const Vital Signs: 07/03/22 22:30 07/03/22 23:02 07/04/22 00:00 Temperature 98 F 98.1 F Temperature Source Temporal Temporal Pulse Rate 42 L 83 70 Respiratory Rate 15 32 H 16 Blood Pressure 129/59 H 164/82 H Blood Pressure Mean 82 109 Pulse Ox 100 93 97 Oxygen Delivery Method Room Air Room Air Room Air 07/04/22 01:05 07/04/22 03:41 Temperature Temperature Source Pulse Rate 50 L 50 L Respiratory Rate 24 H 18 Blood Pressure 94/57 L Blood Pressure Mean 69 Pulse Ox 97 Oxygen Delivery Method Room Air Room Air Positive well nourished and well developed Constitutional Narrative: Patient is obtunded with a GCS of 14 General Appearance ED: well developed HEENT Reports moist mucous membranes Eyes EOMs intact bilaterally Eyes Narrative: Pupils are dilated and slightly sluggish to respond General Eye ED: Yes pale conjunctiva Neck supple Neck Narrative: No meningeal signs Chest Wall palpation of chest normal Resp normal respiratory effort and clear to auscultation bilaterally Cardio regular rate and regular rhythm GI normal to inspection, nondistended, normoactive bowel sounds, non-tender, non- distended and no masses GI Narrative: No voluntary guarding or rigidity no pulsatile mass Auscultation: normoactive bowel sounds Palpation: soft Extremity normal to inspection Neuro oriented x3 and CN's II-XII intact bilaterally Neuro Narrative: Patient is obtunded with a GCS of 14 but she will awaken to voice and follow co mmands without any obvious focal neurologic deficit Sensorium / Orientation: alert Motor Exam: strength 5/5 throughout Psych Psych Narrative: Patient has a depressed/flat affect Skin no rashes or lesions noted Skin Narrative: Skin is pale in color MDM MDM MDM Narrative Medical decision making narrative: Patient presented to the ER obtunded with a GCS of 14 but otherwise no focal deficits and she would awake to voice follow commands and was protecting her airway. Her pulse was low in the 40s and secondary to that she was given atropine. EMS brought a pill bottle with her which was prescribed Ativan 0.5 mg. Reported the fill date was today and it was 60 pills and she was missing 24 of them indicating she would have taken 12 mg of Ativan today. I felt no need for flumazenil as she was protecting her airway and maintaining her mental status. A basic tox screen work-up was obtained which revealed no clinically significant findings. Mainly no signs of benzodiazepines. Patient also has a prescription for Zanaflex listed in her med list and there is a chance that she took this instead based on her bradycardia and symptoms. Poison control was contacted and they do state the patient should be watched for approximately 6 hours and if she returns to baseline mental status and vitals are stable and she should be safe for discharge home assuming laboratory studies revealed no acute findings. Labs revealed revealed anemia with hemoglobin of 6.1. Patient states this is chronic for her and her family doctor is monitoring it. She states the anemia is from iron deficiency and B12 deficiency. She denies any GI bleed. patient was watched in the ER and was reevaluated when she was awake and alert. She is awake and alert to person place and time she reiterates that she is not homicidal or suicidal and states that she took medication not to hurt her self but to help with her symptoms of anxiety and depression. We discussed further evaluation for her anemia at 6.1 that could include a rectal exam for blood as well as blood transfusion. Patient states that her value of 6.1 is her baseline and is being monitored by her family doctor and therefore she does not want any further work-up obtained. At this time as she is not homicidal or suicidal she is back to baseline mental status and she is able to ambulate with a steady gait in the ER do not feel there is need for further evaluation and treatment and she is otherwise safe for discharge Lab Data Attestation: I reviewed the patient's lab results. Labs: Laboratory Results - last 24 hr 07/03/22 07/03/22 07/03/22 22:50 22:50 22:50 WBC 7.4 RBC 3.58 L Hgb 6.1 L Hct 23.9 L MCV 66.8 L MCH 17.0 L MCHC 25.5 L RDW Std Deviation 43.1 RDW Coeff of [place] 18.3 H Plt Count 112 L Immature Gran % (Auto) 0.400 Neut % (Auto) 72.1 H Lymph % (Auto) 20.3 [place] % (Auto) 6.1 Eos % (Auto) 0.8 Baso % (Auto) 0.3 Absolute Neuts (auto) 5.3 Absolute Lymphs (auto) 1.50 Nucleated RBC % 0 Sodium 137 Potassium 4.6 Chloride 109 H Carbon Dioxide 23.0 Anion Gap 5 BUN 11 Creatinine 0.78 Estim Creat Clear Calc 64.39 Est GFR (MDRD) Af Amer 101 Est GFR (MDRD) Non-Af 83 BUN/Creatinine Ratio 14.2 Glucose 209 H Calcium 7.6 L Magnesium 1.8 Urine Color Urine Clarity Urine pH Ur Specific [place] Urine Protein Urine Glucose (UA) Urine Ketones Urine Occult Blood Urine Nitrite Urine Bilirubin Urine Urobilinogen Ur Leukocyte Esterase Urine RBC Urine WBC Ur Squamous Epith Cells Urine Bacteria Urine Mucus Salicylates 3.2 Urine Opiates Screen Urine Methadone Screen Acetaminophen < 2.0 L Ur Barbiturates Screen Ur Phencyclidine Scrn Ur Amphetamines Screen MDMA (Ecstasy) Screen U Benzodiazepines Scrn Urine Cocaine Screen U Cannabinoids Screen Ur Drug Screen Comment Ethyl Alcohol 4.0 07/03/22 07/03/22 23:36 23:36 WBC RBC Hgb Hct MCV MCH MCHC RDW Std Deviation RDW Coeff of [place] Plt Count Immature Gran % (Auto) Neut % (Auto) Lymph % (Auto) [place] % (Auto) Eos % (Auto) Baso % (Auto) Absolute Neuts (auto) Absolute Lymphs (auto) Nucleated RBC % Sodium Potassium Chloride Carbon Dioxide Anion Gap BUN Creatinine Estim Creat Clear Calc Est GFR (MDRD) Af Amer Est GFR (MDRD) Non-Af BUN/Creatinine Ratio Glucose Calcium Magnesium Urine Color Yellow Urine Clarity Clear Urine pH 8.0 Ur Specific [place] 1.010 Urine Protein Negative Urine Glucose (UA) Normal Urine Ketones Negative Urine Occult Blood Negative Urine Nitrite Negative Urine Bilirubin Negative Urine Urobilinogen Normal Ur Leukocyte Esterase Negative Urine RBC 0 SEEN Urine WBC 0 SEEN Ur Squamous Epith Cells 0 SEEN Urine Bacteria 0 SEEN Urine Mucus 0 SEEN Salicylates Urine Opiates Screen NEGATIVE Urine Methadone Screen NEGATIVE Acetaminophen Ur Barbiturates Screen NEGATIVE Ur Phencyclidine Scrn NEGATIVE Ur Amphetamines Screen NEGATIVE MDMA (Ecstasy) Screen NEGATIVE U Benzodiazepines Scrn NEGATIVE Urine Cocaine Screen NEGATIVE U Cannabinoids Screen NEGATIVE Ur Drug Screen Comment Ethyl Alcohol Discharge Plan Triage Chief Complaint: Overdose ED Provider: Garland Sánchez Dx/Rx/DC Orders Clinical Impression: Accidental overdose, Chronic anemia Instructions: ED Accidental Ingestion ... Prescriptions: No Action promethazine 25 MG tablet 25 mg PO Q8H PRN PRN (Reason: Nausea) hydroxyzine HCl 50 mg tablet 50 mg PO TID PRN (Reason: anxiety) Qty: 15 0RF bupropion HCl 150 mg tablet extended release 24 hr 150 mg PO DAILY Label Comments: take 1 tablet by mouth once daily gabapentin 600 mg tablet 1 tab PO QHS Label Comments: take 1 tablet by mouth at bedtime tizanidine 4 mg tablet 1 tab PO TID Label Comments: take 1 tablet by mouth every 8 hours lorazepam 1 mg tablet 0.5 mg PO DAILY Label Comments: take 1 tablet by mouth three times a day if needed for anxiety oxycodone-acetaminophen 7.5-325 mg tablet 1 tab PO TID Label Comments: take 1 tablet by mouth every 8 hours if needed for pain sulfamethoxazole-trimethoprim [sulfamethoxazole-trimethoprim] 800-160 mg tablet 1 tab PO BID Qty: 20 0RF tramadol 50 mg tablet 50 mg PO Q4H PRN PRN (Reason: Pain) 3 Days Qty: 20 0RF cephalexin [cephalexin] 500 mg capsule 500 mg PO Q6 Qty: 40 0RF trazodone 100 mg tablet 100 mg PO QHS Qty: 1 0RF Primary Care Provider: Sidney Herring Referrals: Sidney Herring, [Primary Care Provider] - Disposition Disposition: Home, Self Care Discharge Date/Time: 07/04/22 04:09
== END 2022-07-04 04:09 | disposition home or self-care (01) ==
PROVIDERS: Emergency Provider Emergency Medicine; PCP Family Medicine; Visit Provider Emergency Medicine
DX: T50.901A Poisoning by unspecified drugs, medicaments and biological substances, accidental (unintentional), initial encounter (principal); D64.9 Anemia, unspecified; F17.210 Nicotine dependence, cigarettes, uncomplicated
CPT/HCPCS: 80048; 80307; 80329; 81001; 82077; 83735; 85025; 93005; 96374; 99284; A4216; G0480

== ENCOUNTER 2022-07-05 14:49 | Emergency (ER) | payer MEDICAID, SELFPAY ==
[2022-07-05 14:50] VITALS: BP 144/74; PULSE 115; RESP 18; TEMP 36.6; O2SAT 100; BMI 22.6
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
[2022-07-05] MEDS: LORazepam 2 MG/ML Syringe 1 MG IM (15:12)
[2022-07-05] MEDS: hydrOXYzine 50 MG/ML Vial IM (15:12)
== END 2022-07-05 15:23 | disposition home or self-care (01) ==
PROVIDERS: Emergency Provider Emergency Medicine; PCP Family Medicine; Visit Provider Emergency Medicine
DX: F41.9 Anxiety disorder, unspecified (principal); F32.A Depression, unspecified; F17.210 Nicotine dependence, cigarettes, uncomplicated
CPT/HCPCS: 96372; 99282

== ENCOUNTER 2022-07-18 21:07 | Emergency (ER) | payer MEDICAID, SELFPAY ==
[2022-07-18 21:08] VITALS: BP 114/51; PULSE 106; RESP 16; TEMP 36.9; O2SAT 100; BMI 21.5
--- NOTE | 2022-07-18 21:25 | EKG12_ITS ---
Test Reason : DYSRHYTHMIA Blood Pressure : / mmHG Vent. Rate : 100 BPM Atrial Rate : 100 BPM P-R Int : 126 ms QRS Dur : 088 ms QT Int : 352 ms P-R-T Axes : 035 022 031 degrees QTc Int : 454 ms Normal sinus rhythm Normal ECG Confirmed by SHAY DREW, SEVERIANO ([id number]), slot editor NELIA WELLS ([id number]) on 07/22/2022 9:48:04 AM Referred By: BB Confirmed By:SEVERIANO DAY MD
--- NOTE | 2022-07-18 21:25 | CT_ITS ---
We are attempting to reach an attending provider to discuss findings. An addendum with communication details will be sent when the communication is complete. STUDY: CT HEAD STROKE PROTOCOL W/O CONTRAST INJECTION REASON FOR EXAM: Female, 52 years old. Neuro deficit, acute, stroke suspected TECHNIQUE: Transaxial CT imaging of the brain was performed without administration of intravenous contrast material. Individualized dose optimization techniques were used for this CT. COMPARISON: 10/18/2012 CT, 10/19/2012 MRI of the brain FINDINGS: Normal soft tissue structures. Normal calvarium. Normal size ventricles and extra-axial spaces for the patient''s age. Normal white matter tracts of the cerebral hemispheres. Normal basal ganglia and thalami. Normal brainstem. Normal cerebellum. There is no intracranial hemorrhage. There are no findings of an acute ischemic infarction. Normal visualized paranasal sinuses. ASPECT score: 10 CT/STROKE Brain/Head without Cont IMPRESSION: Normal unenhanced CT scan of the brain. Electronically Signed: Roxanne Deleon, at 22:10 EDT ,
--- NOTE | 2022-07-18 21:25 | RAD_ITS ---
STUDY: X-RAY CHEST REASON FOR EXAM: Female, 52 years old. Neuro deficit, acute, stroke suspected TECHNIQUE: Single AP portable view of the chest. COMPARISON: None. FINDINGS: Cardiac monitoring leads are present. The lungs are clear and expanded. There is no demonstrated pleural abnormality. Normal size heart. Normal mediastinum and nadege. Normal visualized pulmonary arteries. Normal visualized aortic arch and descending thoracic aorta. Normal visualized thoracic spine. Normal visualized ribs, clavicles, and shoulders. There Coiled metallic densities in the region of the gastroesophageal junction. Suspect a previous intervention. There is no demonstrated acute abnormality of the visualized soft tissue structures of the upper abdomen. RAD/Chest 1 View IMPRESSION: Normal x-ray examination of the chest. Electronically Signed: Roxanne Deleon, at 22:21 EDT ,
--- NOTE | 2022-07-18 21:25 | RAD_ITS ---
STUDY: X-RAY - LEFT FOOT CLINICAL: Female, 52 years old. injury TECHNIQUE: 3 view(s) of the foot. COMPARISON: Left foot 01/27/2019 FINDINGS: Normal talus, calcaneus, and tarsal bones. There is a large plantar calcaneal spur. Normal visualized subtalar, talonavicular, calcaneocuboid, tarsal and tarsometatarsal articulations. There are old fracture deformities of the third and fourth distal metatarsals with angulation lateral. Normal metatarsophalangeal joint of the great toe. Normal tibial and fibular sesamoid bones. Normal interphalangeal joint of the great toe. Normal phalanges of the great toe. Normal second through fifth metatarsophalangeal joints. Normal interphalangeal joints and phalanges of the lesser toes. Soft tissue swelling is noted in association with the ankle particularly along the lateral aspect better seen on x-ray of the ankle. RAD/Foot min 3 Views IMPRESSION: Old healed fracture deformities of the third and fourth metatarsals. No acute fracture. Plantar calcaneal spur. Ankle soft tissue swelling. Electronically Signed: Roxanne Deleon, at 22:27 EDT ,
[2022-07-18 21:44] VITALS: BP 135/71; PULSE 101; RESP 13; O2SAT 96
[2022-07-18 22:05] LABS: Absolute Lymphocyte Count 1.22 X10^3/uL (0.83-4.51); Absolute Neutrophil Count 4.5 X10^3/uL (2.0-7.7); Basophil# 0.03 X10^3/uL; Basophil% 0.5 % (0-1); Eosinophil# 0.35 X10^3/uL; Eosinophils% 5.3 % (0-5); Hematocrit 30.1 % (37-47); Hemoglobin 8.1 g/dL (12.0-15.0); Lymphocyte # 1.22 X10^3/ul (0.83-4.51); Lymphocyte % 18.4 % (19-41); Mean Corp Hgb Conc 26.9 g/dL (32-36); Mean Corpuscular Hgb 18.7 pg (27.0-32.0); Mean Corpuscular Volume 69.4 fL (81-99); Mean Platelet Vol. 10.8 fl (6.2-12.0); Monocyte# 0.53 X10^3/uL; NRBC Flagged by Analyzer 0 % (0-5); Neutrophil # 4.49 X10^3/uL (2.7-7.7); Neutrophil % 67.5 % (47-70); POSITIVE MORPHOLOGY YES; Platelet Count 149 K/mm3 (150-450); RBC Distribution Width CV 22.2 % (11.6-14.6); RBC Distribution Width SD 52.7 fl (35.1-43.9); Red Blood Count 4.34 M/mm3 (4.2-5.4); White Blood Count 6.6 K/mm3 (4.4-11.0)
--- NOTE | 2022-07-18 22:06 | RAD_ITS ---
STUDY: X-RAY - LEFT ANKLE REASON FOR EXAM: Female, 52 years old. injury TECHNIQUE: 3 view(s) of the ankle. COMPARISON: None. FINDINGS: Normal visualized distal tibia and fibula. Normal medial and lateral malleoli. Normal tibiotalar articulation and ankle mortise. Normal visualized talus and calcaneus. There is a large plantar calcaneal spur. The visualized subtalar, talonavicular, calcaneocuboid and tarsal articulations are normal. There is no demonstrated fracture. Prominent lateral soft tissue swelling noted. RAD/Ankle min 3 Views IMPRESSION: Normal x-ray examination of the ankle. Electronically Signed: Roxanne Deleon, at 22:23 EDT ,
[2022-07-18 22:11] LABS: Differential Indicated SCAN CRITERIA MET
--- NOTE | 2022-07-18 22:17 | EDS_ITS ---
HPI History of Present Illness Chief Complaint: Lower Extremity Injury Informant: patient Onset/Context/Timing Onset: Days (several) Narrative Narrative: Patient states 4 days ago she received a blood transfusion here because she was anemic. She states that her doctors are working her up for this to tell her why she was so anemic. Subsequently after that, at some point she cannot remember exactly when, she developed numbness throughout her entire left foot and weakness with the inability to dorsiflex it. As a result of this, she states she has had multiple stumbles which have resulted in twisting her left ankle and now it hurts and is swollen as a result of that. She denies any other injury and she denies any other neurologic symptoms. She denies headache. No vision changes. No speech difficulty. No other illness. She feels less tired since the blood transfusion. [facility] Medical History Chronic back pain History of depression History of herniated intervertebral disc Home Medications hydroxyzine HCl 50 mg tablet 50 mg PO TID PRN anxiety #15 tabs 02/09/22 [Rx Last Taken Unknown] gabapentin 600 mg tablet 1 tab PO QHS 04/22/22 [History Last Taken Unknown] tizanidine 4 mg tablet 1 tab PO QHS 04/22/22 [History Last Taken Unknown] diazepam 5 mg tablet 5 mg PO DAILY 07/18/22 [History Last Taken Unknown] morphine 30 mg tablet,extended release 30 mg PO BID 07/18/22 [History Last Taken Unknown] Allergy/AdvReac Type Severity Reaction Status Date / Time bupivacaine [From Marcaine] Allergy Angioedema Verified 07/18/22 21:11 cortisone Allergy Angioedema Verified 07/18/22 21:11 lidocaine Allergy Angioedema Verified 07/18/22 21:11 NSAIDS (Non-Steroidal AdvReac Upset Verified 07/18/22 21:11 Anti-Inflamma Stomach Surgical History (Updated 07/18/22 @ 21:47 by Jocelin Kim) Hx of appendectomy Hx of cholecystectomy Hx of gastric bypass Hx of hysterectomy Hx of rotator cuff surgery Social History Smoking Status: Current every day smoker tobacco type: cigarettes substance use type: does not use ROS ROS ED Constitutional Constitutional ED: Denies chills or fever(s) Eyes Eyes: Denies change in vision or diplopia ENT ENT ED: Denies rhinorrhea or sore throat Cardiovascular Cardiovascular: Denies chest pain or palpitations Respiratory/Chest Respiratory/Chest: Denies cough or dyspnea Gastrointestinal Gastrointestinal: Denies abdominal pain, diarrhea, nausea or vomiting Genitourinary Genitourinary ED: Denies dysuria or hematuria Musculoskeletal Musculoskeletal: Reports extremity pain; Denies neck pain Integumentary Denies Abrasions, rash or wounds Neurologic Neurologic: Reports as per HPI, numbness and weakness; Denies abnormal speech or dizziness Psychiatric Psychiatric: Denies anxiety or suicidal thoughts EXAM Physical Exam Const Vital Signs: 07/18/22 21:08 07/18/22 21:44 07/18/22 21:44 Temperature 98.4 F Temperature Source Temporal Pulse Rate 106 H 101 H Respiratory Rate 16 13 Blood Pressure 114/51 L 135/71 H Blood Pressure Mean 72 92 Pulse Ox 100 96 Oxygen Delivery Method Room Air Room Air Positive well nourished and well developed General Appearance ED: well developed and NAD HEENT Reports moist mucous membranes normocephalic and atraumatic Eyes PERRL and EOMs intact bilaterally Neck full ROM and supple Resp normal respiratory effort and clear to auscultation bilaterally Cardio regular rate, regular rhythm and no murmurs GI non-tender and non-distended Auscultation: normoactive bowel sounds Palpation: soft Back/Spine normal ROM and normal to inspection General Back: other FROM Extremity normal to inspection Extremity Narrative: Tenderness and swelling at the left lateral malleolus and soft tissues just distal to this. No tenderness at the base of the fifth metatarsal but the patient states she is insensate there, no tenderness at the medial malleolus or the fibular head. Skin intact. General Extremety ED: Yes tenderness; Negative for edema or pulses abnormal General Extremity: Negative for edema or pulses abnormal Neuro oriented x3 Neuro Narrative: Patient has sensory deficit in stocking glove distribution throughout the left foot, there is less sensory loss distal lower leg, and normal sensory at the knee and proximal. She has a foot drop and is unable to dorsiflex at all, not limited by pain. 2+/4 intact dorsalis pedis pulse. NIHSS 2 for the symptoms otherwise she is normal neurologically. Sensorium / Orientation: alert Motor Exam: strength 5/5 throughout Psych mental status grossly normal and thought process normal Skin no wounds Rashes: no rashes MDM MDM MDM Narrative Medical decision making narrative: I suspect this patient may be having an acute stroke or may have had a subacute stroke causing her left foot drop, which subsequently probably caused her to sprain her ankle. Three-view x-rays of the left ankle on my interpretation are negative for any acute fracture, 1 view chest x-ray done as a mediastinal evaluation due to possible stroke on my interpretation is negative for any acute or a widened mediastinum, and her head CT is negative for anything acute. I also sent for a 3 view x-ray series of the left foot since she is insensate the re, to rule out a fracture of the fifth metatarsal especially, on my interpretation those are negative as well. She is in sinus rhythm and not atrial fibrillation at this time. I think this patient needs more of a stroke work-up plan is for admission. However, in discussing this, the patient is adamant that she is going home. There is a family member with her. She and I both discussed at length the fact that if she has had an acute stroke, we could diagnose it, work-up for causes to potentially prevent more, which may or may not include more blood transfusions since she is still fairly anemic and indeed it is microcytic, and prevent her from going home and having worsening ischemic stroke which could cause permanent disability and/or in worse case scenarios. Furthermore, he would also benefit her by having a medical diagnosis confirmed as far as what is causing her foot drop, which could result in her getting a brace covered by insurance. She understands all this has the capacity to make this decision and understands that she may have further stroke and desires to leave AGAINST MEDICAL ADVICE anyway and states she will do no admission or other testing until she talks to her primary care doctor in the morning. I would advise that she take aspirin every day until she follows up, given that ischemic stroke is in the differential diagnosis, however she states she had a gastric bypass surgery and cannot take those kinds of medicines anyway. I do not have enough information at this time to know if the benefits of placing her on clopidogrel outweigh the potential risks of bleeding Lab Data Attestation: I reviewed the patient's lab results. Labs: Laboratory Results - last 24 hr 07/18/22 07/18/22 07/18/22 21:40 21:40 21:40 WBC 6.6 RBC 4.34 Hgb 8.1 L Hct 30.1 L MCV 69.4 L MCH 18.7 L MCHC 26.9 L RDW Std Deviation 52.7 H RDW Coeff of Irma 22.2 H Plt Count 149 L MPV 10.8 Immature Gran % (Auto) 0.300 Neut % (Auto) 67.5 Lymph % (Auto) 18.4 L [place] % (Auto) 8.0 Eos % (Auto) 5.3 H Baso % (Auto) 0.5 Absolute Neuts (auto) 4.5 Absolute Lymphs (auto) 1.22 Nucleated RBC % 0 Differential Comment SCANNED Diff Path Review May foll Hypochromasia 3+ Anisocytosis 2+ Target Cells RARE Ovalocytes RARE Crenated Cell RARE PT 13.3 INR 1.0 APTT 33.3 Sodium 136 Potassium 3.1 L Chloride 98 Carbon Dioxide 28.0 Anion Gap 10 BUN 8 Creatinine 0.69 Estim Creat Clear Calc 72.79 Est GFR (MDRD) Af Amer 115 Est GFR (MDRD) Non-Af 95 BUN/Creatinine Ratio 11.5 Glucose 132 H Calcium 8.7 Troponin I High Sens 7 Radiography Diagnostic Testing: Clinical Impression(s) from Imaging Studies Brain CT 07/18/22 21:25 IMPRESSION: Normal unenhanced CT scan of the brain. Electronically Signed: Roxanne Deleon, at 22:10 EDT , ADDENDUM: 07/18/228 IMPRESSION: Normal unenhanced CT scan of the brain. N.B. : The above Results were Read Back by Roxanne Deleon to Rajan Almeida MD, and understanding confirmed on 07/18/2022 22:11:58 (ET). Electronically Signed: Roxanne Deleon, at 22:10 EDT , Chest X-Ray 07/18/22 21:25 IMPRESSION: Normal x-ray examination of the chest. Electronically Signed: Roxanne Deleon, at 22:21 EDT , Foot X-Ray 07/18/22 21:25 IMPRESSION: Old healed fracture deformities of the third and fourth metatarsals. No acute fracture. Plantar calcaneal spur. Ankle soft tissue swelling. Electronically Signed: Roxanne Deleon, at 22:27 EDT , Ankle X-Ray 07/18/22 22:06 IMPRESSION: Normal x-ray examination of the ankle. Electronically Signed: Roxanne Deleon, at 22:23 EDT , Rhythm Strip Rhythm Strip: Sinus Rhythm Rate: 100 Ectopy: None EKG Initial EKG: Attestation: I personally reviewed and interpreted this EKG as follows: Interpretation: Sinus Rhythm and No Acute Injury Pattern Comments: normal EKG Discharge Plan Triage Chief Complaint: Lower Extremity Injury ED Provider: Rajan Almeida Dx/Rx/DC Orders Clinical Impression: Foot drop, left, Left ankle sprain, Microcytic anemia Instructions: ED Foot Drop, ED Ankle Sprain (Adult) Prescriptions: No Action hydroxyzine HCl 50 mg tablet 50 mg PO TID PRN (Reason: anxiety) Qty: 15 0RF gabapentin 600 mg tablet 1 tab PO QHS Label Comments: take 1 tablet by mouth at bedtime tizanidine 4 mg tablet 1 tab PO QHS Label Comments: take 1 tablet by mouth every 8 hours morphine 30 mg tablet extended release 30 mg PO BID Label Comments: take 1 tablet by mouth every 12 hours for 30 DAYS diazepam 5 mg tablet 5 mg PO DAILY Label Comments: take 1 tablet by mouth at bedtime Primary Care Provider: Sidney Herring Referrals: Sidney Herring, [Primary Care Provider] - As soon as possible Disposition Disposition: Against Medical Advice Capacity Capacity Assessment Tool Can the patient make a choice & communicate that choice?: Yes Can the patient understand benefits, risks and alternatives?: Yes Can the patient make a logical, rational choice?: Yes Is the choice the patient makes consistent w/ their values?: Yes Is there an impending, emergent risk to the patient?: Unable to Determine Does the patient have an Advance Directive?: No Is there a Surrogate Available?: Yes i.e. close relative (spouse, child, parent, sibling)?: Yes
[2022-07-18 22:25] LABS: Anion Gap 10 (5-15); BUN 8 mg/dL (7-18); BUN/Creat Ratio 11.5 RATIO (10-20); Calcium,Total 8.7 mg/dL (8.5-10.1); Chloride 98 mmol/L (98-107); Creatinine, Serum 0.69 mg/dL (0.55-1.02); EST Glomerular Filtration Rate 95 mL/min (>60); Est Glom Filt Rate - Afr Amer 115 mL/min (>60); Estimated Creatinine Clearance 72.79 ml/min; Glucose 132 mg/dL (74-106); Potassium 3.1 mmol/L (3.5-5.1); Sodium Level 136 mmol/L (136-145); Troponin-I HS 7 pg/mL (3.0-54.0)
[2022-07-18 22:27] LABS: Prothrombin Time (Protime)PT. 13.3 SECONDS (11.7-14.9)
[2022-07-18] MEDS: HYDROcodone Bitartrate/Apap 5/325 Tablet PO (22:34)
[2022-07-18 22:41] LABS: Partial Thromboplast Time 33.3 Seconds (24.1-36.2)
[2022-07-18 22:43] LABS: Differential Comment SCANNED
[2022-07-18 22:44] LABS: Anisocytosis 2+; Hypochromasia 3+; Ovalocyte RARE
[2022-07-18 22:45] LABS: Crenated RBC RARE
[2022-07-18 22:47] LABS: Pathologist Review May foll; Target Cells RARE
[2022-07-18 23:45] VITALS: BP 101/60; PULSE 70; RESP 12; O2SAT 96; BMI 21.5
== END 2022-07-18 23:46 | disposition left against medical advice (07) ==
PROVIDERS: Emergency Provider Emergency Medicine; PCP Family Medicine; Visit Provider Emergency Medicine
DX: S93.402A Sprain of unspecified ligament of left ankle, initial encounter (principal); M21.962 Unspecified acquired deformity of left lower leg; D50.9 Iron deficiency anemia, unspecified; M54.9 Dorsalgia, unspecified; F32.9 Major depressive disorder, single episode, unspecified; G89.29 Other chronic pain; F17.210 Nicotine dependence, cigarettes, uncomplicated; Z79.899 Other long term (current) drug therapy; W01.0XXA Fall on same level from slipping, tripping and stumbling without subsequent striking against object, initial encounter
CPT/HCPCS: 70450; 71045; 73610; 73630; 80048; 84484; 85025; 85610; 85730; 93005; 99285

== ENCOUNTER 2022-08-11 13:14 | Emergency (ER) | payer MEDICAID, SELFPAY ==
[2022-08-11 13:16] VITALS: BP 117/66; PULSE 107; RESP 16; TEMP 36.7; O2SAT 98; BMI 21.7
--- NOTE | 2022-08-11 13:31 | EDS_ITS ---
HPI <PRAVEEN Patten - Last Filed: 08/11/22 15:28> History of Present Illness Chief Complaint: Back Narrative Narrative: Patient is here with low back pain after a fall a week ago. She states that she cannot remember when but she developed numbness and left foot drop over a month ago and this caused her to trip getting out of the bathtub a week ago. She is not sure how she landed but is having acute low back pain radiating down the left buttock and lateral thigh since then. She saw her PCP a few days ago. She states he prescribes her oral morphine twice daily for chronic pain issues but she has been taking more than usual and cannot fill it again until 08/13 and she is here for pain control. She denies saddle anesthesia or bladder or bowel incontinence. There is no change to the chronic left foot drop and numbness. [facility], LATER [facility] <PRAVEEN Patten - Last Filed: 08/11/22 15:28> [facility], LAT[facility] Medical History Chronic back pain History of depression History of herniated intervertebral disc Home Medications hydroxyzine HCl 50 mg tablet 50 mg PO TID PRN anxiety #15 tabs 02/09/22 [Rx Last Taken Unknown] gabapentin 600 mg tablet 1 tab PO QHS 04/22/22 [History Last Taken Unknown] tizanidine 4 mg tablet 1 tab PO QHS 04/22/22 [History Last Taken Unknown] diazepam 5 mg tablet 5 mg PO DAILY 07/18/22 [History Last Taken Unknown] morphine 30 mg tablet,extended release 30 mg PO BID 07/18/22 [History Last Taken Unknown] Allergy/AdvReac Type Severity Reaction Status Date / Time bupivacaine [From Marcaine] Allergy Angioedema Verified 07/18/22 21:11 cortisone Allergy Angioedema Verified 07/18/22 21:11 lidocaine Allergy Angioedema Verified 07/18/22 21:11 tramadol Allergy Other Verified 08/11/22 13:15 NSAIDS (Non-Steroidal AdvReac Upset Verified 07/18/22 21:11 Anti-Inflamma Stomach Surgical History (Updated 07/18/22 @ 21:47 by Jocelin Kim) Hx of appendectomy Hx of cholecystectomy Hx of gastric bypass Hx of hysterectomy Hx of rotator cuff surgery Social History Smoking Status: Current every day smoker tobacco type: cigarettes substance use type: does not use ROS <PRAVEEN Patten - Last Filed: 08/11/22 15:28> ROS ED ROS Narrative Constitutional: Negative for fever, chills, malaise. Eyes: Negative for visual change. ENT: Negative for sore throat, ear pain, rhinorrhea. CVS: Negative for palpitations, chest pain, syncope. Respiratory: Negative for shortness of breath, cough, orthopnea. GI: Negative for abdominal pain, nausea, vomiting, diarrhea, constipation, melena, hematochezia. : Negative for dysuria, hematuria or frequency. Neuro: Negative for headache, new motor/sensory dysfunction. Skin: Negative for rash, abscess, or wound. Musc: Positive for back pain, trauma. Heme: Negative for easy bruising, bleeding, lymphadenopathy. EXAM <PRAVEEN Patten - Last Filed: 08/11/22 15:28> Physical Exam Narrative Exam Narrative: CONST: Patient sitting in no acute distress. EYES: Normal inspection. NECK: Normal inspection. RESP: No respiratory distress, CTAB. CVS: Regular rate and rhythm, no murmur, no gallop. Back: Normal inspection, midline lumbar tenderness with no step-offs. SKIN: Color normal, no rash, warm, dry, intact. EXTREMITIES: Normal appearance, complete left foot drop. 5/5 strength in bilateral hip flexion and knee flexion/extension, and plantar flexion. Normal sensation to light touch, 2+ DP pulses. NEURO: Oriented x4. PSYCH: Normal affect. Const Vital Signs: 08/11/22 13:16 Temperature 98.1 F Temperature Source Temporal Pulse Rate 107 H Respiratory Rate 16 Blood Pressure 117/66 Blood Pressure Mean 83 Pulse Ox 98 Oxygen Delivery Method Room Air <Dr. Rajan Almeida MD - Last Filed: 08/11/22 19:25> Physical Exam Const Vital Signs: 08/11/22 13:16 Temperature 98.1 F Temperature Source Temporal Pulse Rate 107 H Respiratory Rate 16 Blood Pressure 117/66 Blood Pressure Mean 83 Pulse Ox 98 Oxygen Delivery Method Room Air MDM <PRAVEEN Patten - Last Filed: 08/11/22 15:28> MDM MDM Narrative Medical decision making narrative: Patient presents with low back and left gluteal pain after a fall 1 week ago. There are no signs of trauma on exam. She does have lower midline lumbar tenderness with no step-offs. She has complete left foot drop but this is chronic for over a month. She has 5 x 5 strength in bilateral hip flexion and knee flexion/extension. Normal sensation and distal pulses. No red flags concerning for cauda equina. Lumbar spine x-rays show no acute findings. Regarding her subacute left foot drop a CT brain was obtained and is negative. Patient was actually seen here a month ago for this had a nonacute CT which was also normal and refused admission for stroke work-up. With no changes on the CT today I suspect this is more peripheral and she will need outpatient work-up. She was given Toradol and morphine here with some improvement and takes chronic oral morphine at home from her primary care. She was discharged in stable condition. Radiography Diagnostic Testing: Clinical Impression(s) from Imaging Studies Lumbar Spine X-Ray 08/11/22 13:40 IMPRESSION: Degenerative changes of the spine, as detailed above. Electronically Signed: Ascencion Vaughn MD at 14:17 EDT , Brain CT 08/11/22 14:13 IMPRESSION: Normal unenhanced CT scan of the brain. Electronically Signed: Ascencion Vaughn MD at 14:50 EDT , ED attending interpretation of lumbar spine shows normal alignment with no acute fracture. <Dr. Rajan Almeida MD - Last Filed: 08/11/22 19:25> MDM Radiography Diagnostic Testing: Clinical Impression(s) from Imaging Studies Lumbar Spine X-Ray 08/11/22 13:40 IMPRESSION: Degenerative changes of the spine, as detailed above. Electronically Signed: Ascencion Vaughn MD at 14:17 EDT , Brain CT 08/11/22 14:13 IMPRESSION: Normal unenhanced CT scan of the brain. Electronically Signed: Ascencion Vaughn MD at 14:50 EDT , Treatment and Re-Evaluation Narrative: Seen and evaluated independently and in conjunction with physician accounting administrative assistant. Agree with notes above unless documented otherwise. Patient with persistent left foot drop, no new neurologic symptoms. Pain in her back since a fall, x-rays 3 views of my interpretation negative for any acute, radiology in agreement. We repeated her head CT since she left AGAINST MEDICAL ADVICE before, this primarily to rule out central causes of her left lower extremity neurologic deficit. It is normal and unchanged, I feel I feel good about sending her home to follow-up, she states she is having nerve conduction studies and other imaging ordered by her PCP which I think is reasonable. Discharge Plan Triage Chief Complaint: Back ED Midlevel Provider: Khloe Burks ED Provider: Rajan Almeida Dx/Rx/DC Orders Clinical Impression: Low back pain, Foot drop, left, Accidental fall Instructions: ED Back Care Tips Prescriptions: No Action hydroxyzine HCl 50 mg tablet 50 mg PO TID PRN (Reason: anxiety) Qty: 15 0RF gabapentin 600 mg tablet 1 tab PO QHS Label Comments: take 1 tablet by mouth at bedtime tizanidine 4 mg tablet 1 tab PO QHS Label Comments: take 1 tablet by mouth every 8 hours morphine 30 mg tablet extended release 30 mg PO BID Label Comments: take 1 tablet by mouth every 12 hours for 30 DAYS diazepam 5 mg tablet 5 mg PO DAILY Label Comments: take 1 tablet by mouth at bedtime Primary Care Provider: Sidney Herring Referrals: Sidney Herring DO [Primary Care Provider] - Activity Restrictions/Additional Instructions: You need to see your doctor for further testing to evaluate your foot drop. Take your pain meds regarding your back and use heat or ice. Disposition Disposition: Home, Self Care Discharge Date/Time: 08/11/22 15:38
[2022-08-11] MEDS: Ketorolac 30 MG/ML Syringe IM (13:32)
--- NOTE | 2022-08-11 13:40 | RAD_ITS ---
STUDY: X-RAY - LUMBAR SPINE REASON FOR EXAM: Female, 52 years old. low back pain TECHNIQUE: 3 view(s) of the lumbar spine were obtained. COMPARISON: None FINDINGS: Normal lumbar lordosis. There is no substantial scoliosis. No visualized fracture or compression deformity. Mild to moderate disc space narrowing is present at L3-L4 and L4-L5. Normal remaining disc spaces. The soft tissue structures are unremarkable. Multiple surgical clips are seen in the abdomen. RAD/Lumbar Spine 2 or 3 Views IMPRESSION: Degenerative changes of the spine, as detailed above. Electronically Signed: Ascencion Vaughn MD at 14:17 EDT ,
--- NOTE | 2022-08-11 14:13 | CT_ITS ---
STUDY: CT BRAIN WITHOUT CONTRAST REASON FOR EXAM: Female, 52 years old. Left foot weakness PT STATES FELL LAST WEEK. SEEN PCP FRIDAY THEY STATED PROBABLY A PINCHED NERVE IN LOWER BACK. STATES PAIN HURTS IN BACK AND GOES DOWN INTO BUTT CHEEK. RADIATION DOSAGE (If Supplied By Facility): CTDIvol = ( 44.99 ) mGy, DLP = ( 796.11 ) mGycm TECHNIQUE: Transaxial CT imaging of the brain was performed without administration of intravenous contrast material. Individualized dose optimization techniques were used for this CT. COMPARISON: Head CT dated July 18, 2022 FINDINGS: Normal soft tissue structures. Normal calvarium. Normal size ventricles and extra-axial spaces for the patient''s age. Normal white matter tracts of the cerebral hemispheres. Normal basal ganglia and thalami. Normal brainstem. Normal cerebellum. No hypodensity or sulcal effacement is present. There is no intracranial hemorrhage. There are no findings of an acute ischemic infarction. Normal visualized paranasal sinuses. CT/Brain/Head without Contrast IMPRESSION: Normal unenhanced CT scan of the brain. Electronically Signed: Ascencion Vaughn MD at 14:50 EDT Reading Location ID and State: [facility] / [place] , Service support ,
[2022-08-11] MEDS: Ondansetron ODT 4 MG Tablet PO (15:00)
[2022-08-11] MEDS: Morphine 4 MG/ML Syringe IM (15:02)
== END 2022-08-11 15:38 | disposition home or self-care (01) ==
PROVIDERS: Emergency Provider Emergency Medicine; PCP Family Medicine; Visit Provider Emergency Medicine
DX: M54.50 Low back pain, unspecified (principal); F17.210 Nicotine dependence, cigarettes, uncomplicated; M21.372 Foot drop, left foot; Z79.899 Other long term (current) drug therapy; W19.XXXA Unspecified fall, initial encounter
CPT/HCPCS: J2405; 70450; 72100; 96372; 99282

== ENCOUNTER 2022-11-03 21:45 | Emergency (ER) | payer MEDICAID, SELFPAY ==
[2022-11-03 21:46] VITALS: BP 100/59; PULSE 68; PULSE 70; RESP 16; TEMP 36.1; O2SAT 100; BMI 22.8
--- NOTE | 2022-11-03 22:10 | CT_ITS ---
EXAM: CT HEAD WITHOUT INTRAVENOUS CONTRAST CLINICAL INDICATION: diffuse weakness worse on right TECHNIQUE: Multiple axial images were obtained of the head without intravenous contrast. This CT exam was performed using one or more of the following dose reduction techniques: automated exposure control, adjustment of the mA and/or kV according to patient size, and/or use of iterative reconstruction technique. This report was created using [employer] report generation technology. COMPARISON: 08/11/2022 FINDINGS: BRAIN AND EXTRA-AXIAL SPACES: Unremarkable. No intra- or extra-axial hemorrhage. No evidence of acute infarct. No intracranial mass or mass effect. There is preservation of the abbasi/white matter interface. Posterior fossa structures are unremarkable. Ventricles are appropriate for age. No hydrocephalus. Basal cisterns are patent. BONES/JOINTS: Unremarkable. No discrete lytic or blastic abnormalities. SINUSES: Unremarkable as visualized. Clear. MASTOID AIR CELLS: Unremarkable. Clear. ORBITS: Visualized globes, extraocular muscles, optic nerves and retrobulbar fat appear unremarkable. CT/Brain/Head without Contrast IMPRESSION: Negative head/brain CT without intravenous contrast. There has been no significant change from the reference exam. Electronically Signed: Manish Pierce MD at 23:20 EST ,
--- NOTE | 2022-11-03 22:10 | EKG12_ITS ---
Test Reason : WEAKNESS Blood Pressure : / mmHG Vent. Rate : 067 BPM Atrial Rate : 067 BPM P-R Int : 132 ms QRS Dur : 078 ms QT Int : 414 ms P-R-T Axes : 040 020 040 degrees QTc Int : 437 ms Normal sinus rhythm Normal ECG Confirmed by SHAY DREW, SEVERIANO ([id number]), medical transcription editor NELIA WELLS ([id number]) on 11/04/2022 2:01:52 PM Referred By: Confirmed By:SEVERIANO DAY MD
--- NOTE | 2022-11-03 22:38 | EX.ED.DYSGE1 ---
HPI History of Present Illness Chief Complaint: Weakness Informant: patient Onset/Context/Timing Onset: Month(s) (3) Context: Gradual Onset Timing: Continuous Quality: weak and tingling Location: BLE worse on right Current Severity: Severe Maximum Severity: Severe Worsened by: nothing Relieved by: nothing Narrative Narrative: Patient states she has had weakness in her lower extremities worse on the right, sometimes it occurs on the left, for the last couple weeks it has been the former, since July. Has been progressively getting worse. Saw her PCP and was told may have multiple sclerosis, has an MRI ordered but has not obtained yet. She has not sought out home health, an aide, or anything else for this in the meantime but presents to the [facility] because she is so weak she states she cannot get around her apartment or stand up on her own without significant assistance. She states she is too weak to push the foot resting on her recliner and has trouble even getting out of bed. She lives alone. She denies any other new symptoms, but states that she does occasionally get involvement of her right upper extremity and her lower face, sometimes on the right sometimes in the left but these are not bothering her right now more the legs. She does not have any neck pain. No headaches or vision changes. No saddle anesthesia or urinary retention but urinary less than usual recently. Normal bowel movements. She does have burning pain where she is having tingling specially the right foot. That is been going on for weeks. She denies any falls or injuries. States she has a history of bulging disks in her back but has never had surgery for it. Most of her surgeries have been orthopedic, shoulders. [facility] Medical History Chronic back pain History of depression History of herniated intervertebral disc Home Medications tizanidine 4 mg tablet 1 tab PO QHS 04/22/22 [History Last Taken Unknown] diazepam 5 mg tablet 5 mg PO DAILY 07/18/22 [History Last Taken Unknown] morphine 30 mg tablet,extended release 30 mg PO BID 07/18/22 [History Last Taken Unknown] clonazepam 0.5 mg tablet 0.5 mg PO BID 11/03/22 [History Last Taken Unknown] Allergy/AdvReac Type Severity Reaction Status Date / Time bupivacaine [From Marcaine] Allergy Angioedema Verified 09/22/22 21:11 cortisone Allergy Angioedema Verified 07/18/22 21:11 lidocaine Allergy Angioedema Verified 07/18/22 21:11 tramadol Allergy Other Verified 08/11/22 13:15 NSAIDS (Non-Steroidal AdvReac Upset Verified 07/18/22 21:11 Anti-Inflamma Stomach Surgical History (Updated 07/18/22 @ 21:47 by Jocelin Kim) Hx of appendectomy Hx of cholecystectomy Hx of gastric bypass Hx of hysterectomy Hx of rotator cuff surgery Social History Smoking Status: Current every day smoker tobacco type: cigarettes substance use type: does not use ROS ROS ED Constitutional Constitutional ED: Denies chills or fever(s) Eyes Eyes: Denies change in vision or diplopia ENT ENT ED: Denies rhinorrhea or sore throat Cardiovascular Cardiovascular: Denies chest pain or palpitations Respiratory/Chest Respiratory/Chest: Denies cough or dyspnea Gastrointestinal Gastrointestinal: Denies abdominal pain, diarrhea, nausea or vomiting Genitourinary Genitourinary ED: Denies dysuria or hematuria Musculoskeletal Musculoskeletal: Denies back pain or neck pain Integumentary Denies abscess or rash Neurologic Neurologic: Reports as per HPI, paresthesias and weakness; Denies abnormal speech or headache(s) Psychiatric Psychiatric: Denies anxiety or suicidal thoughts EXAM Physical Exam Const Vital Signs: 11/03/22 21:46 11/03/22 21:46 11/03/22 21:50 Temperature 96.9 F L 96.9 F L Temperature Source Temporal Temporal Pulse Rate 68 70 Respiratory Rate 16 16 Respiratory Effort Normal Blood Pressure 100/59 L 100/59 L Blood Pressure Mean 72 72 Pulse Ox 100 100 Oxygen Delivery Method Room Air Room Air 11/04/22 01:04 Temperature Temperature Source Pulse Rate 61 Respiratory Rate 16 Respiratory Effort Blood Pressure 97/66 Blood Pressure Mean 76 Pulse Ox 98 Oxygen Delivery Method Room Air Positive well nourished and well developed General Appearance ED: well developed and NAD HEENT Reports moist mucous membranes normocephalic and atraumatic Eyes PERRL and EOMs intact bilaterally Neck full ROM and supple Resp normal respiratory effort and clear to auscultation bilaterally Cardio regular rate, regular rhythm and no murmurs GI non-tender and non-distended Auscultation: normoactive bowel sounds Palpation: soft Back/Spine no CVA tenderness General Back: other FROM Extremity normal to inspection General Extremety ED: Negative for edema, pulses abnormal or tenderness General Extremity: Negative for edema or pulses abnormal Neuro oriented x3 and CN's II-XII intact bilaterally Neuro Narrative: Decree sensation right foot. Good pulse. Decreased strength both lower extremities, she drifts with both of them and obviously struggles with the right but can keep off of the bed for 5 seconds. Sensorium / Orientation: awake and alert Psych mental status grossly normal Skin no rashes or lesions noted and no wounds MDM MDM MDM Narrative Medical decision making narrative: Work-up here basically shows that she is anemic. I see no evidence of anything else acute. She does not have a urine infection, her 2 view chest x-ray on my interpretation shows no signs of pneumonia and radiology is in agreement, I did a CT of her head due to the asymmetric neurologic symptoms although they are chronic. My interpretation of the CT agrees with that of the radiologist. Radiologist agrees that it is negative for any acute. Her EKG and cardiac enzymes are negative. Her anemia is a little worse than it had been, and it is microcytic. She does not have an elevated BUN to suggest GI bleeding, and she has no symptoms of that. She is not bleeding from anywhere else either. When I discussed this with her, unaffected could be contributing to her generalized weakness, she states she is already on iron supplements but she had a history of a gastric bypass, she has trouble taking large amounts of it. She is pretty much taking it once a day. I advised her that she may need to consider IV iron infusions, she states that she is already had discussions about this with her doctor. While waiting for the work-up to come back, she is ambulatory in the hallway with a walker that she borrows from us and she appears to be doing well. I advised her of this, and offered admission stating that she does not have any clear medical reason to require admission and would likely be a 23-hour observation with OT and PT evaluations, and if she wanted to be admitted to a group home it might be something she ends up having to pay for since she has anemia that could be corrected as an outpatient and right now she is able to walk. She understands all that and is in agreement with my evaluation, and states that she does not want that and would prefer to go home. However she has what sound like neuropathic pain in her lower extremities and she is asking for pain medication. Initially we gave her [place] but she said that was not good enough, she takes MS Contin at home, she was given a dose of morphine and will be discharged home to follow-up. Lab Data Attestation: I reviewed the patient's lab results. Labs: Laboratory Results - last 24 hr 11/03/22 11/03/22 11/04/22 22:40 22:40 00:30 WBC 5.4 RBC 3.86 L Hgb 7.8 L Hct 27.0 L MCV 69.9 L MCH 20.2 L MCHC 28.9 L RDW Std Deviation 50.9 H RDW Coeff of [place]ma 20.3 H Plt Count 134 L MPV TNP Immature Gran % (Auto) 0.400 Neut % (Auto) 67.3 Lymph % (Auto) 20.9 [place] % (Auto) 8.8 Eos % (Auto) 2.4 Baso % (Auto) 0.2 Absolute Neuts (auto) 3.6 Absolute Lymphs (auto) 1.12 Nucleated RBC % 0 Differential Comment Sodium 142 Potassium 3.8 Chloride 113 H Carbon Dioxide 27.0 Anion Gap 2 L BUN 10 Creatinine 0.52 L Estim Creat Clear Calc 96.58 Est GFR (MDRD) Af Amer 161 Est GFR (MDRD) Non-Af 133 BUN/Creatinine Ratio 19.4 Glucose 84 Calcium 7.9 L Total Bilirubin 0.20 AST 20 ALT 36 Alkaline Phosphatase 128 H Troponin I High Sens < 3 L Total Protein 5.8 L Albumin 2.6 L Globulin 3.2 Albumin/Globulin Ratio 0.8 L Urine Color Yellow Urine Clarity Clear Urine pH 7.0 Ur Specific [place] 1.010 Urine Protein 15 H Urine Glucose (UA) Normal Urine Ketones Negative Urine Occult Blood Negative Urine Nitrite Negative Urine Bilirubin Negative Urine Urobilinogen Normal Ur Leukocyte Esterase 25 H Urine RBC 0 SEEN Urine WBC 0-5 SEEN Ur Squamous Epith Cells 0-5 SEEN Urine Bacteria RARE Urine Mucus 0 SEEN Radiography Diagnostic Testing: Clinical Impression(s) from Imaging Studies Brain CT 11/03/22 22:10 IMPRESSION: Negative head/brain CT without intravenous contrast. There has been no significant change from the reference exam. Electronically Signed: Manish Pierce MD at 23:20 EST , Chest X-Ray 11/03/22 23:05 IMPRESSION: No radiographic evidence of acute cardiopulmonary disease. Electronically Signed: Manish Pierce MD at 23:28 EST , Rhythm Strip Rhythm Strip: Sinus Rhythm Rate: 65 Ectopy: None EKG Initial EKG: Attestation: I personally reviewed and interpreted this EKG as follows: Interpretation: Sinus Rhythm and No Acute Injury Pattern Comments: nml EKG Discharge Plan Triage Chief Complaint: Weakness ED Provider: Rajan Almeida Dx/Rx/DC Orders Clinical Impression: Generalized weakness, Neuropathic pain of both legs, Paresthesias, Microcytic hypochromic anemia Instructions: Anemia Prescriptions: No Action tizanidine 4 mg tablet 1 tab PO QHS Label Comments: take 1 tablet by mouth every 8 hours morphine 30 mg tablet extended release 30 mg PO BID Label Comments: take 1 tablet by mouth every 12 hours for 30 DAYS diazepam 5 mg tablet 5 mg PO DAILY Label Comments: take 1 tablet by mouth at bedtime clonazepam 0.5 mg tablet 0.5 mg PO BID Label Comments: TAKE ONE TABLET BY MOUTH TWICE DAILY Primary Care Provider: Sidney Herring Referrals: Sidney Herring, DO [Primary Care Provider] - As soon as possible Disposition Disposition: Home, Self Care
[2022-11-03] MEDS: 0.9% Normal Saline 1,000 ML 150 ML IV (22:40)
[2022-11-03] MEDS: HYDROcodone Bitartrate/Apap 5/325 Tablet PO (22:47)
[2022-11-03 22:54] LABS: Absolute Lymphocyte Count 1.12 X10^3/uL (0.83-4.51); Absolute Neutrophil Count 3.6 X10^3/uL (2.0-7.7); Basophil# 0.01 X10^3/uL; Basophil% 0.2 % (0-1); Eosinophil# 0.13 X10^3/uL; Eosinophils% 2.4 % (0-5); Hemoglobin 7.8 g/dL (12.0-15.0); Lymphocyte # 1.12 X10^3/ul (0.83-4.51); Lymphocyte % 20.9 % (19-41); Mean Corp Hgb Conc 28.9 g/dL (32-36); Mean Corpuscular Hgb 20.2 pg (27.0-32.0); Mean Corpuscular Volume 69.9 fL (81-99); Monocyte# 0.47 X10^3/uL; Monocyte% 8.8 % (0-10); NRBC Flagged by Analyzer 0 % (0-5); Neutrophil # 3.62 X10^3/uL (2.7-7.7); Neutrophil % 67.3 % (47-70); POSITIVE MORPHOLOGY YES; Platelet Count 134 K/mm3 (150-450); RBC Distribution Width CV 20.3 % (11.6-14.6); RBC Distribution Width SD 50.9 fl (35.1-43.9); Red Blood Count 3.86 M/mm3 (4.2-5.4); White Blood Count 5.4 K/mm3 (4.4-11.0)
[2022-11-03 22:58] LABS: Differential Indicated SCAN CRITERIA MET
--- NOTE | 2022-11-03 23:05 | RAD_ITS ---
EXAM: XR CHEST, 2 VIEWS CLINICAL INDICATION: weak TECHNIQUE: Frontal and lateral views of the chest. This report was created using [employer] report generation technology. COMPARISON: 07/18/2022 FINDINGS: LUNGS AND PLEURAL SPACES: Unremarkable. No consolidation or edema. No pneumothorax. No effusion. HEART: Unremarkable. Cardiac silhouette not enlarged. MEDIASTINUM: Central airways and mediastinal contour are unremarkable. BONES/JOINTS: Unremarkable. SOFT TISSUES: Unremarkable. RAD/Chest PA and Lateral IMPRESSION: No radiographic evidence of acute cardiopulmonary disease. Electronically Signed: Manish Pierce MD at 23:28 EST ,
[2022-11-03 23:07] LABS: ALB/GLOB Ratio 0.8 RATIO (0.9-2.4); AST(SGOT) 20 U/L (15-37); Alanine Aminotransfer ALT/SGPT 36 U/L (13-56); Albumin, Serum 2.6 g/dL (3.2-5.0); Alkaline Phosphatase 128 U/L (45-117); Anion Gap 2 (5-15); BUN 10 mg/dL (7-18); BUN/Creat Ratio 19.4 RATIO (10-20); Calcium,Total 7.9 mg/dL (8.5-10.1); Chloride 113 mmol/L (98-107); Creatinine, Serum 0.52 mg/dL (0.55-1.02); EST Glomerular Filtration Rate 133 mL/min (>60); Est Glom Filt Rate - Afr Amer 161 mL/min (>60); Estimated Creatinine Clearance 96.58 ml/min; Globulin 3.2 g/dL (2.2-4.2); Glucose 84 mg/dL (74-106); Potassium 3.8 mmol/L (3.5-5.1); Protein, Total 5.8 g/dL (6.4-8.2); Sodium Level 142 mmol/L (136-145); Troponin-I HS < 3 pg/mL (3.0-54.0)
[2022-11-04 00:39] LABS: Mucous, Urine 0 SEEN /hpf (<or=2+); Red Blood Cells-Urine 0 SEEN /hpf (0-5)
[2022-11-04 00:43] LABS: Color, Urine Yellow (Yellow); Glucose, Dipstick Normal (Normal); Ketone-Dipstick Negative (Negative); Leukocyte Esterase-Dipstick 25 /ul (Negative); Nitrite-Dipstick Negative (Negative); Occult Blood-Urine Negative /ul (Negative); Protein-Dipstick 15 mg/dl (Negative); Urine Bilirubin Dipstick Negative (Negative); Urine Clarity Clear (Clear); Urine Urobilinogen Normal (Normal)
[2022-11-04 01:04] VITALS: BP 97/66; PULSE 61; RESP 16; O2SAT 98
[2022-11-04 01:06] LABS: Bacteria RARE /hpf (None Seen); Squamous Epithelial Cells - UA 0-5 SEEN /hpf (5-10); White Blood Cells 0-5 SEEN /hpf (0-5)
[2022-11-04] MEDS: Morphine 4 MG/ML Syringe IV (02:08)
[2022-11-04 02:10] VITALS: BP 98/53; PULSE 64; RESP 16; O2SAT 99
== END 2022-11-04 02:38 | disposition home or self-care (01) ==
PROVIDERS: Emergency Provider Emergency Medicine; PCP Family Medicine; Visit Provider Emergency Medicine
DX: R53.1 Weakness (principal); G57.83 Other specified mononeuropathies of bilateral lower limbs; D50.9 Iron deficiency anemia, unspecified; F17.210 Nicotine dependence, cigarettes, uncomplicated; Z79.891 Long term (current) use of opiate analgesic
CPT/HCPCS: 70450; 71046; 80053; 81001; 84484; 85025; 87428; 93005; 96374; 99285; J7030; A4216

== ENCOUNTER 2022-11-27 19:00 | Emergency (ER) | payer MEDICAID, SELFPAY ==
[2022-11-27 19:01] VITALS: BP 109/90; PULSE 114; RESP 16; TEMP 36.6; O2SAT 97; BMI 21.3
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
--- NOTE | 2022-11-27 21:49 | RAD_ITS ---
INDICATION: pain, fracture EXAMINATION/TECHNIQUE: X-RAY - RIGHT XR Forearm 2 Views 3 VIEWS COMPARISON: None. FINDINGS: SOFT TISSUES: Diffuse forearm and hand soft tissue edema. No radiopaque foreign body. BONES/JOINTS: Comminuted mildly impacted fracture of the distal ulnar diaphysis.. Complex fracture of the distal radial metadiaphysis with slight volar angulation and displacement. Normal distal radioulnar joint and proximal radioulnar joint alignment no aggressive osseous lesion. RAD/Forearm 2 Views IMPRESSION: Distal radial and ulnar fractures. Electronically Signed: Loi Merino MD at 22:08 EST ,
[2022-11-27] MEDS: morphine 10 MG/ML Syringe 8 MG IM (22:00)
[2022-11-27 23:50] VITALS: BP 102/78; PULSE 83; PULSE 88; RESP 14; RESP 16; O2SAT 96; O2SAT 98
== END 2022-11-27 23:51 | disposition home or self-care (01) ==
PROVIDERS: Emergency Provider Emergency Medicine; PCP Family Medicine; Visit Provider Emergency Medicine
DX: S52.601A Unspecified fracture of lower end of right ulna, initial encounter for closed fracture (principal); S52.501A Unspecified fracture of the lower end of right radius, initial encounter for closed fracture; F17.210 Nicotine dependence, cigarettes, uncomplicated; V89.0XXA Person injured in unspecified motor-vehicle accident, nontraffic, initial encounter
CPT/HCPCS: 73090; 96372; 99285

== ENCOUNTER 2022-11-30 14:02 | Emergency (ER) | payer MEDICAID, SELFPAY ==
[2022-11-30 14:06] VITALS: BP 146/79; PULSE 98; RESP 16; TEMP 37.2; O2SAT 100; BMI 19.4
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
[2022-11-30 14:56] LABS: Bacteria 0 SEEN /hpf (None Seen); Color, Urine Yellow (Yellow); Glucose, Dipstick Normal (Normal); Ketone-Dipstick Negative (Negative); Leukocyte Esterase-Dipstick Negative /ul (Negative); Mucous, Urine 0 SEEN /hpf (<or=2+); Nitrite-Dipstick Negative (Negative); Occult Blood-Urine Negative /ul (Negative); Protein-Dipstick 15 mg/dl (Negative); Red Blood Cells-Urine 0 SEEN /hpf (0-5); Squamous Epithelial Cells - UA 0 SEEN /hpf (5-10); Urine Bilirubin Dipstick Negative (Negative); Urine Clarity Clear (Clear); Urine Urobilinogen Normal (Normal); White Blood Cells 0 SEEN /hpf (0-5)
[2022-11-30] MEDS: HYDROcodone Bitartrate/Apap 5/325 Tablet PO (15:00)
[2022-11-30 15:39] VITALS: BP 127/65
== END 2022-11-30 15:44 | disposition home or self-care (01) ==
PROVIDERS: Emergency Provider Emergency Medicine; PCP Family Medicine; Visit Provider Emergency Medicine
DX: S52.91XA Unspecified fracture of right forearm, initial encounter for closed fracture (principal); M54.9 Dorsalgia, unspecified; G89.29 Other chronic pain; F17.210 Nicotine dependence, cigarettes, uncomplicated; X58.XXXA Exposure to other specified factors, initial encounter
CPT/HCPCS: 81001; 99284